=== PATIENT | female | born 1930 | race Two or more races ===

== ENCOUNTER 2019-01-28 19:17 | Inpatient (IN) | payer MEDICARE, OTHER ==
--- NOTE | 2019-01-28 19:52 | ED Physician Chart ---
ED Chief Complaint/HPI - Patient Information Date Seen:: 01/28/19 Time Seen:: 19:49 Chief Complaint:: agitation History of Present Illness:: 88 yr old female for geropsych eval with agitation no acute distress pt awake no tanswering questions Allergies:: Allergies Allergy/AdvReac Type Severity Reaction Status Date / Time Penicillins Allergy Verified 01/28/19 19:29 Vitals:: Vital Signs - 8 hr 01/28/19 19:20 Temp 97.8 F HR 76 RR 18 BP 117/63 O2 Sat % 98 ED Review of Systems - Review of Systems General/Constitutional: No fever, No chills, No weight loss, No weakness, No diaphoresis, No edema, No loss of appetite Skin: No skin lesions, No rash, No bruising Head: No headache, No light-headedness Eyes: No loss of vision, No pain, No diplopia ENT: No earache, No nasal drainage, No sore throat, No tinnitus Neck: No neck pain, No swelling, No thyromegaly, No stiffness, No mass noted Cardio Vascular: No chest pain, No palpitations, No PND, No orthopnea, No edema Pulmonary: No SOB, No cough, No sputum, No wheezing GI: No nausea, No vomiting, No diarrhea, No pain, No melena, No hematochezia, No constipation, No hematemesis G/U: No dysuria, No frequency, No hematuria Musculoskeletal: No bone or joint pain, No back pain, No muscle pain Endocrine: No polyuria, No polydipsia Psychiatric: No prior psych history, No depression, No anxiety, No suicidal ideation Hematopoietic: No bruising, No lymphadenopathy Allergic/Immuno: No urticaria, No angioedema Neurological: No syncope, No focal symptoms, No weakness, No paresthesia, No headache, No seizure, No dizziness, No confusion, No vertigo ED Past Medical History - Past Medical History Past Medical History: Other (see nurses notes) Family Medical History - Family Member Mother History Unknown: Yes ED Physical Exam - Physical Examination General/Constitutional: Awake, Well-developed, well-nourished, Alert, No distress, GCS 15, Non-toxic appearing, Ambulatory Head: Atraumatic Eyes: Lids, conjuctiva normal, PERRL, EOMI Skin: Nl inspection, No rash, No skin lesions, No ecchymosis, Well hydrated, No lymphadenopathy ENMT: External ears, nose nl, Nasal exam nl, Lips, teeth, gums nl Neck: Nontender, Full ROM w/o pain, No JVD, No nuchal rigidity, No bruit, No mass, No stridor Respiratory: Nl effort/Exclusion, Clear to Auscultation, No Wheeze/Rhonchi/Rales Cardio Vascular: RRR, No murmur, gallop, rubs, NL S1 S2 GI: No tenderness/rebounding/guarding, No organomegaly, No hernia, Normal BS's, Nondistended, No mass/bruits, No McBurney tenderness : No CVA tenderness Extremities: No tenderness or effusion, Full ROM, normal strength in all extremities, No edema, Normal digits & nails Neuro/Psych: Alert/oriented, DTR's symmetric, Normal sensory exam, Normal motor strength, Judgement/insight normal, Mood normal, Normal gait, No focal deficits Misc: Normal back, No paraspinal tenderness ED Assessment - Assessment General Assessment: agitation geropsych eval ED Septic Shock - . Is Septic Shock (SBP<90, OR Lactate>4 mmol\L) present?: No - <6hrs of presentation: Vital Signs: Vital Signs - 8 hr 01/28/19 19:20 Temp 97.8 F HR 76 RR 18 BP 117/63 O2 Sat % 98 ED Reassessment (Disposition) - Reassessment Reassessment:: agitation geropsych eval - Diagnosis Diagnosis:: as above - Patient Disposition Admitted to:: [facility] Condition at Disposition:: Stable
[2019-01-28 20:17] LABS: % BASOPHILS 0.8 % (0.0-2.0); % EOSINOPHILS 1.6 % (0.0-5.0); % LYMPHOCYTES 30.4 % (20.0-50.0); % MONOCYTES 6.7 % (2.0-10.0); % NEUTROPHILS 60.5 % (40.0-80.0); BASOPHILE ABSOLUTE 0.1 Th/cumm (0-0.2); EOSINOPHILE ABSOLUTE 0.1 Th/cmm (0.1-0.4); HEMATOCRIT 35.3 % (41.0-60); HEMOGLOBIN 11.8 gm/dL (12-16); LYMPHOCYTE ABSOLUTE 2.3 Th/cmm (1.5-3.0); MEAN CELL VOLUME 89.7 fl (81-100); MEAN CORPUSCULAR HGB CONC 33.5 pg (28.0-36.0); MONOCYTE ABSOLUTE 0.5 Th/cmm (0.3-1.0); NEUTROPHILE ABSOLUTE 4.7 Th/cmm (1.8-8.0); PLATELET COUNT 230 Th/cmm (150-400); RED BLOOD COUNT 3.94 Mil/cmm (3.80-5.20); RED CELL DISTRIBUTION WIDTH 12.3 % (11.5-20.0); WHITE BLOOD COUNT 7.7 Th/cmm (4.8-10.8)
[2019-01-28 20:34] LABS: ALB/GLOB RATIO 1.1 (1.0-1.8); ALBUMIN 3.6 gm/dL (3.7-5.3); ALKALINE PHOSPHATASE 47 U/L (34-104); BILIRUBIN,TOTAL 0.3 mg/dL (0.3-1.0); BUN - UREA NITROGEN 20 mg/dL (7-25); CALCIUM SERUM 9.7 mg/dL (8.6-10.3); CARBON DIOXIDE 24.9 mEq/L (21.0-31.0); CHLORIDE 99 mEq/L (98-107); CREATININE - SERUM 0.8 mg/dL (0.6-1.2); GLUCOSE 350 mg/dL (70-105); POTASSIUM SERUM 3.9 mEq/L (3.5-5.1); SGOT 12 U/L (13-39); SGPT/ALT 11 U/L (7-52); SODIUM SERUM 131 mEq/L (136-145)
[2019-01-28] MEDS ORDERED: INSULIN LISPRO 100 UNIT/ML VIAL SUBQ SCH (21:00)
[2019-01-28] MEDS ORDERED: INSULIN LISPRO 100 UNIT/ML VIAL SUBQ ONE ×2 (21:01→21:45)
[2019-01-28] MEDS ORDERED: Magnesium Hydroxide (MOM) 30 mL UDC PO PRN (22:32)
[2019-01-28 22:52] LABS: CHOLESTEROL 181 mg/dL (<200); HDL -HIGH DENSITY LIPOPROTEIN 41 mg/dL (23-92); TRIGLYCERIDES 171 mg/dL (<150)
[2019-01-29 07:06] LABS: A1C 8.8 % (4.8-5.6)
[2019-01-29] MEDS ORDERED: INSULIN HUMAN REGULAR 100 UNIT/ML VIAL SUBQ SCH (07:30)
[2019-01-29] MEDS ORDERED: Non-Formulary Item 1 EA (Ascorbate Calcium [Vitamin C] 500 MG) PO SCH (09:00)
[2019-01-29] MEDS: Multivitamin w/ Minerals Tab PO SCH (09:06)
[2019-01-29] MEDS: Aspirin 81mg Chewable Tab PO SCH (09:06)
[2019-01-29] MEDS ORDERED: Dextrose 50% 50 mL Abboject IVP PRN (09:26)
[2019-01-29] MEDS ORDERED: GLUCAGON HCl 1 MG KIT IM PRN (09:26)
--- NOTE | 2019-01-29 10:28 | History and Physical ---
History of Present Illness - HPI Chief Complaint: 88 y/o female patient was brought into ER due to agitation. HPI: 88 y/o female patient was admitted to [facility] due to Agitation. Patient has history of . Patient had an ER assessment and a complete workup was done. Patient was diagnosed with Acute Psychosis. Patient will have a Psyche consult and I will follow, treat and monitor patient. Patient will continue current treatment plan as ordered. Vital Signs: Last Vital Signs Temp 97.9 F 01/29/19 05:49 Pulse 71 01/29/19 05:49 Resp 20 01/29/19 05:49 BP 133/54 01/29/19 05:49 Pulse Ox 96 01/29/19 05:49 Past Medical History Cardiovascular: Report: No Pertinent Hx Pulmonary: Report: No Pertinent Hx ETHYL BLENDER: Report: No Pertinent Hx GI: Report: No Pertinent Hx Psych: Report: Psychosis Musculoskeletal: Report: No Pertinent Hx Rheumatologic: Report: No pertinent Hx Infectious Disease: Report: No Pertinent Hx Renal/: Report: No Pertinent Hx Endocrine: Report: No Pertinent Hx Dermatology: Report: No Pertinent Hx - Past Surgical History Past Surgical History: No pertinent Hx Family Medical History - Family Member Mother History Unknown: Yes Social History Smoke: No Alcohol: None Drugs: None Lives: Skilled Nursing Domestic Violence: Negative Health Maintenance Health Maintenance: Other (see chart.) - Medications Home Medications: Home Medication Medication Instructions Recorded Type Ascorbate Calcium [Vitamin C] 500 mg PO DAILY 01/28/19 History Aspirin 81 mg PO DAILY 01/28/19 History Calcium Carbonate [Calcium] 600 mg PO HS 01/28/19 History Cholecalciferol (Vitamin D3) 2,000 unit PO HS 01/28/19 History [Vitamin D3] Citalopram Hydrobromide [Celexa*] 10 mg PO HS 01/28/19 History Fenofibric Acid (Choline) 135 mg PO HS 01/28/19 History [Trilipix] Insulin Glargine [Lantus Insulin] 10 units SUBQ HS 01/28/19 History Insulin Human Regular [humuLIN R] 100 unit SQ ACHS 01/28/19 History Linagliptin [Tradjenta] 5 mg PO HS 01/28/19 History Multivitamin w/ Minerals 1 tab PO DAILY 08/23/19 History [Theragran M] risperiDONE [RisperDAL] 0.5 mg PO Q12HR 01/28/19 History Other Medications: please see medication reconciliation sheet. - Allergies Allergies/Adverse Reactions: Allergies Allergy/AdvReac Type Severity Reaction Status Date / Time Penicillins Allergy Verified 01/28/19 19:29 Review of Systems - Review of Systems Review of Systems: Patient has been very agitated and irritable. Constitutional: Report: No Significant Eyes: Report: No Significant ENT: Report: No Significant Respiratory: Report: No Significant Cardiovascular: Report: No Significant Gastrointestinal: Report: No Significant Genitourinary: Report: No Significant Musculoskeletal: Report: No Significant Skin: Report: No Significant Neurological: Report: Other (Agitated.) Physical Exam - Physical Exam HEENT: Report: Ears Nose Throat within normal limits Neck: Report: Within normal limits Cardiovascular Systems: Report: +s1/s2 noted Respiratory: Report: Breath Sounds are within normal limits Abdomen: Report: Non-tender to palpation Back: Report: Inspection of back is within normal limits. Extremities: Report: Non-tender to palpation. Skin: Report: Color of skin is within normal limits Neuro/Psych: Report: Other (Agitation.) - Lab Results All Lab Results last 24 hours: Laboratory Results - last 24 hr 01/28/19 01/28/19 01/28/19 20:05 20:05 20:30 WBC 7.7 RBC 3.94 Hgb 11.8 L Hct 35.3 L MCV 89.7 MCH 30.0 MCHC Differential 33.5 RDW 12.3 Plt Count 230 MPV 8.7 Neutrophils % 60.5 Lymphocytes % 30.4 Monocytes % 6.7 Eosinophils % 1.6 Basophils % 0.8 Sodium 131 L Potassium 3.9 Chloride 99 Carbon Dioxide 24.9 Anion Gap 11.0 BUN 20 Creatinine 0.8 Est GFR ( Amer) TNP Est GFR (Non-Af Amer) TNP BUN/Creatinine Ratio 25.0 Glucose 350 H Calcium 9.7 Total Bilirubin 0.3 AST 12 L ALT 11 Alkaline Phosphatase 47 Total Protein 7.0 Albumin 3.6 L Globulin 3.4 Albumin/Globulin Ratio 1.1 Triglycerides 171 H Cholesterol 181 LDL Cholesterol Direct 127 HDL Cholesterol 41 - Assessment Assessment: Acute Psychosis. - Plan Plan: Continuation of care. Monitor Vitals and Labs. Continue present meds as directed. Monitor Diet/Nutritional support. Psych management per Psych. Physical therapy/Occupational therapy prn. Fall precaution, frequent nursing rounds, and as needed restraints to prevent fall. Safety precaution. Supportive care. Continue collaborating with consulting specialists, case management and nursing team. Will Monitor patient and continue current treatment plan as ordered.
[2019-01-29] MEDS: INSULIN LISPRO SLIDING SCALE 100 UNITS/ML UNIT SUBQ SCH ×3 (11:45→21:12)
[2019-01-29] MEDS: Fenofibrate, Micronized 134 mg Cap PO SCH (20:26)
[2019-01-29] MEDS: Vitamin D3 2,000 IU SGL PO SCH (20:26)
[2019-01-29] MEDS ORDERED: FENOFIBRIC ACID 135 MG PO SCH (21:00)
[2019-01-29] MEDS: Insulin Glargine 100 units/ml 10ml Vial SUBQ SCH (21:11)
--- NOTE | 2019-01-30 04:30 | Consultation ---
DATE OF CONSULTATION: 01/29/2019 INITIAL PSYCHIATRIC EVALUATION Covering for Dr. Rodriguez CHIEF COMPLAINT: Selectively mute. HISTORY OF PRESENT ILLNESS: An 88-year-old female brought in here for aggressive and agitated behavior, diagnosed with acute psychosis, transition from the ER to [facility]. Today on [id number] evaluation, the patient appeared to be responding, needing a lot of redirection to talk, selectively mute, disengaged and refusing to be interviewed. CURRENT HOME MEDICATIONS: Include vitamin C, aspirin, calcium, vitamin D3, Celexa 10 mg, fenofibric acid, insulin, multivitamins and risperidone. CURRENT MEDICAL PROBLEMS: Hyperlipidemia, diabetes. SIGNIFICANT FAMILY PSYCHIATRIC: Denies. ALLERGIES TO MEDICATIONS: PENICILLIN. SOCIAL HISTORY: No history of alcohol or drug use. Lives in a senior living. Denies any physical or verbal abuse. LABORATORY DATA: Reviewed. MENTAL STATUS EXAMINATION: Selectively mute, disengaged, unable to assess thought process and thought content, responding. Poor insight, poor judgment, poor impulse control. PRIMARY DIAGNOSIS: Unspecified psychosis. SECONDARY DIAGNOSIS: None. MEDICAL DIAGNOSIS: As noted above. STRENGTHS: Good support system. WEAKNESSES: Poor coping skills. ESTIMATED LENGTH OF STAY: Between 5-10 days. LEGAL HISTORY: None. ONSET OF ILLNESS: Unable to assess due to the patient's refusal. ASSESSMENT AND PLAN: An 88-year-old female, history of dementia with behavior disturbances and psychotic behavior and agitation, medically cleared. We will continue monitoring, obtain more collateral baseline information. Continue with the risperidone. We will obtain more collateral, accept the 5150. [facility]# [id number]
[2019-01-30] MEDS: INSULIN LISPRO SLIDING SCALE 100 UNITS/ML UNIT SUBQ SCH ×4 (06:57→21:05)
[2019-01-30] MEDS: Multivitamin w/ Minerals Tab PO SCH (08:53)
[2019-01-30] MEDS: Aspirin 81mg Chewable Tab PO SCH (08:53)
--- NOTE | 2019-01-30 10:35 | Internal Medicine Prog Note ---
Internal Medicine Subjective - Subjective Patient is:: awake, non-verbal, non-interactive, arousable, in bed, other Per staff patient has:: no adverse event, no episodes of fall Internal Medicine Objective - Results Result Diagrams: 01/28/19 20:05 01/28/19 20:05 Recent Labs: Laboratory Last Values WBC 7.7 Th/cmm (4.8-10.8) 01/28/19 20:05 RBC 3.94 Mil/cmm (3.80-5.20) 01/28/19 20:05 Hgb 11.8 gm/dL (12-16) L 01/28/19 20:05 Hct 35.3 % (41.0-60) L 01/28/19 20:05 MCV 89.7 fl (81-100) 01/28/19 20:05 MCH 30.0 pg (27.0-31.0) 01/28/19 20:05 MCHC Differential 33.5 pg (28.0-36.0) 01/28/19 20:05 RDW 12.3 % (11.5-20.0) 01/28/19 20:05 Plt Count 230 Th/cmm (150-400) 01/28/19 20:05 MPV 8.7 fl 01/28/19 20:05 Neutrophils % 60.5 % (40.0-80.0) 01/28/19 20:05 Lymphocytes % 30.4 % (20.0-50.0) 01/28/19 20:05 Monocytes % 6.7 % (2.0-10.0) 01/28/19 20:05 Eosinophils % 1.6 % (0.0-5.0) 01/28/19 20:05 Basophils % 0.8 % (0.0-2.0) 01/28/19 20:05 Sodium 131 mEq/L (136-145) L 01/28/19 20:05 Potassium 3.9 mEq/L (3.5-5.1) 01/28/19 20:05 Chloride 99 mEq/L (98-107) 01/28/19 20:05 Carbon Dioxide 24.9 mEq/L (21.0-31.0) 01/28/19 20:05 Anion Gap 11.0 (7.0-16.0) 01/28/19 20:05 BUN 20 mg/dL (7-25) 01/28/19 20:05 Creatinine 0.8 mg/dL (0.6-1.2) 01/28/19 20:05 Est GFR ( Amer) TNP 01/28/19 20:05 Est GFR (Non-Af Amer) TNP 01/28/19 20:05 BUN/Creatinine Ratio 25.0 01/28/19 20:05 Glucose 350 mg/dL (70-105) H 01/28/19 20:05 POC Glucose 205 MG/DL (70 - 105) H 01/30/19 05:49 Calcium 9.7 mg/dL (8.6-10.3) 01/28/19 20:05 Total Bilirubin 0.3 mg/dL (0.3-1.0) 01/28/19 20:05 AST 12 U/L (13-39) L 01/28/19 20:05 ALT 11 U/L (7-52) 01/28/19 20:05 Alkaline Phosphatase 47 U/L (34-104) 01/28/19 20:05 Total Protein 7.0 gm/dL (6.0-8.3) 01/28/19 20:05 Albumin 3.6 gm/dL (3.7-5.3) L 01/28/19 20:05 Globulin 3.4 gm/dL 01/28/19 20:05 Albumin/Globulin Ratio 1.1 (1.0-1.8) 01/28/19 20:05 Triglycerides 171 mg/dL (<150) H 01/28/19 20:30 Cholesterol 181 mg/dL (<200) 01/28/19 20:30 LDL Cholesterol Direct 127 mg/dL (75-193) 01/28/19 20:30 HDL Cholesterol 41 mg/dL (23-92) 01/28/19 20:30 - Physical Exam Vitals and I&O: Vital Signs Temp 97.6 F 01/30/19 04:39 Pulse 69 01/30/19 04:39 Resp 18 01/30/19 04:39 BP 140/62 01/30/19 04:39 Pulse Ox 98 01/30/19 04:39 Intake & Output 01/29/19 01/30/19 01/30/19 18:59 06:59 18:59 Intake Total 960 480 Balance 960 480 Intake: Oral 960 480 Other: # Voids 4 2 # Bowel Movements 1 Active Medications: Current Medications Acetaminophen (Tylenol) 650 mg PO Q4HR PRN PRN Reason: Mild Pain / Temp above 100 Stop: 03/29/19 22:31 Ascorbic Acid (Vitamin C) 500 mg PO DAILY [facility] Stop: 03/30/19 08:59 Last Admin: 01/30/19 08:53 Dose: 500 mg Aspirin (Aspirin Chewable) 81 mg PO DAILY [facility] Stop: 03/30/19 08:59 Last Admin: 01/30/19 08:53 Dose: 81 mg Calcium Carbonate (Calcium Carb) 600 mg PO [facility] Stop: 03/30/19 20:59 Last Admin: 01/29/19 21:25 Dose: 600 mg Citalopram Hydrobromide (Celexa) 10 mg PO [facility] Stop: 03/30/19 20:59 Last Admin: 01/29/19 20:27 Dose: 10 mg Dextrose (D50w) 50 ml IVP PRN PRN PRN Reason: Blood Glucose less than 70 Stop: 03/30/19 09:25 Dextrose (Glutose 40%) 18.75 gm PO PRN PRN PRN Reason: Blood Glucose less than 70 Stop: 03/30/19 09:25 Fenofibrate (Tricor) 134 mg PO [facility] Stop: 03/30/19 20:59 Last Admin: 01/29/19 20:26 Dose: 134 mg Glucagon (Glucagen) 1 mg IM PRN PRN PRN Reason: Blood Glucose less than 70 Stop: 03/30/19 09:25 Insulin Glargine (Lantus Insulin) 10 units SUBQ [facility] Stop: 03/30/19 20:59 Last Admin: 01/29/19 21:11 Dose: 10 units Insulin Human Lispro (Humalog Insulin Sliding Scale) 0 units SUBQ [facility]; Protocol Stop: 03/30/19 11:29 Last Admin: 01/30/19 06:57 Dose: 4 units Lorazepam (Ativan) 0.5 mg PO Q4HR PRN; Protocol PRN Reason: Anxiety Stop: 02/27/19 21:59 Magnesium Hydroxide (Milk Of Magnesia) 30 ml PO HS PRN PRN Reason: Constipation Risperidone (Risperdal) 0.5 mg PO Q12HR [facility]; Protocol Stop: 03/30/19 08:59 Last Admin: 01/30/19 08:53 Dose: 0.5 mg Vitamin D (Vitamin D3) 2,000 iu PO HS [facility] Stop: 03/30/19 20:59 Last Admin: 01/29/19 20:26 Dose: 2,000 iu Zolpidem Tartrate (Ambien) 5 mg PO HS PRN PRN Reason: Insomnia Stop: 03/29/19 22:31 Last Admin: 01/29/19 20:27 Dose: 5 mg General: weak, demented, obese, NAD HEENT: NC/AT, PERRLA Neck: Supple, No JVD Lungs: CTAB Cardiovascular: RRR, Normal S1, Normal S2 Abdomen: soft, non-tender, non-distended Extremities: clear Internal Medicine Assmt/Plan - Assessment Assessment: Acute Psychosis Diabetes Hyperlipidemia Obesity - Plan Plan: Continue current treatment plan. Monitor Labs.Continue current medications Continue to monitor VS Monitor Diet/Nutritional support. Psych management per Psychiatry. Pain Management. PT/OT prn Safety precaution, Fall precaution, frequent nursing round. Supportive care. Continue collaborating with consulting specialists, case management and nursing team.
[2019-01-30 16:32] LABS: URINE SOURCE CATH
[2019-01-30 16:34] LABS: URINE BILIRUBIN NEGATIVE (NEGATIVE); URINE BLOOD TRACE (NEGATIVE); URINE GLUCOSE (UA) NEGATIVE (NEGATIVE); URINE KETONE NEGATIVE (NEGATIVE); URINE LEUKOCYTE ESTERASE TRACE (NEGATIVE); URINE MICROSCOPIC INDICATED? YES; URINE NITRATE NEGATIVE (NEGATIVE); URINE PROTEIN NEGATIVE (NEGATIVE); URINE UROBILINOGEN 0.2 E.U./dL (0.2 - 1.0)
[2019-01-30 17:19] LABS: URINE CLARITY CLEAR (CLEAR); URINE COLOR YELLOW
[2019-01-30 17:23] LABS: URINE BACTERIA 2+ /hpf (NONE SEEN); URINE EPITHELIAL CELLS FEW /lpf (FEW); URINE RBC 0-2 /hpf (0-5)
[2019-01-30] MEDS: Vitamin D3 2,000 IU SGL PO SCH (21:01)
[2019-01-30] MEDS: Fenofibrate, Micronized 134 mg Cap PO SCH (21:01)
[2019-01-30] MEDS: Insulin Glargine 100 units/ml 10ml Vial SUBQ SCH (21:04)
--- NOTE | 2019-01-31 02:56 | Progress Notes ---
DATE: 01/30/[address] Rodriguez. SUBJECTIVE: The patient was seen and evaluated. The patient's chart reviewed. Nursing staff reporting that overnight the patient continues to need a lot of redirections, intermittently yelling nonsensical statements. Today on [id number] evaluation, the patient continues to be selectively mute, disengaged in the interview. MENTAL STATUS EXAMINATION: Tangential, disorganized, selectively mute. ASSESSMENT AND PLAN: An 88-year-old female with dementia with behavior disturbances. We will continue monitoring. We will continue with the current medication regimen to target the patient's disorganized state. JOB# [id number]
[2019-01-31] MEDS: INSULIN LISPRO SLIDING SCALE 100 UNITS/ML UNIT SUBQ SCH ×3 (07:05→20:54)
[2019-01-31] MEDS: Aspirin 81mg Chewable Tab PO SCH (08:04)
[2019-01-31] MEDS: Multivitamin w/ Minerals Tab PO SCH (08:05)
--- NOTE | 2019-01-31 11:16 | Internal Medicine Prog Note ---
Internal Medicine Subjective - Subjective Service Date: 01/31/19 Patient seen and examined:: with staff Patient is:: awake, non-verbal, non-interactive, arousable, in bed, other ( Demented.) Patient Complaints of:: other Per staff patient has:: no adverse event, no episodes of fall Internal Medicine Objective - Results Result Diagrams: 01/28/19 20:05 01/28/19 20:05 Recent Labs: Laboratory Last Values WBC 7.7 Th/cmm (4.8-10.8) 01/28/19 20:05 RBC 3.94 Mil/cmm (3.80-5.20) 01/28/19 20:05 Hgb 11.8 gm/dL (12-16) L 01/28/19 20:05 Hct 35.3 % (41.0-60) L 01/28/19 20:05 MCV 89.7 fl (81-100) 01/28/19 20:05 MCH 30.0 pg (27.0-31.0) 01/28/19 20:05 MCHC Differential 33.5 pg (28.0-36.0) 01/28/19 20:05 RDW 12.3 % (11.5-20.0) 01/28/19 20:05 Plt Count 230 Th/cmm (150-400) 01/28/19 20:05 MPV 8.7 fl 01/28/19 20:05 Neutrophils % 60.5 % (40.0-80.0) 01/28/19 20:05 Lymphocytes % 30.4 % (20.0-50.0) 01/28/19 20:05 Monocytes % 6.7 % (2.0-10.0) 01/28/19 20:05 Eosinophils % 1.6 % (0.0-5.0) 01/28/19 20:05 Basophils % 0.8 % (0.0-2.0) 01/28/19 20:05 Sodium 131 mEq/L (136-145) L 01/28/19 20:05 Potassium 3.9 mEq/L (3.5-5.1) 01/28/19 20:05 Chloride 99 mEq/L (98-107) 01/28/19 20:05 Carbon Dioxide 24.9 mEq/L (21.0-31.0) 01/28/19 20:05 Anion Gap 11.0 (7.0-16.0) 01/28/19 20:05 BUN 20 mg/dL (7-25) 01/28/19 20:05 Creatinine 0.8 mg/dL (0.6-1.2) 01/28/19 20:05 Est GFR ( Amer) TNP 01/28/19 20:05 Est GFR (Non-Af Amer) TNP 01/28/19 20:05 BUN/Creatinine Ratio 25.0 01/28/19 20:05 Glucose 350 mg/dL (70-105) H 01/28/19 20:05 POC Glucose 180 MG/DL (70 - 105) H 01/31/19 05:57 Calcium 9.7 mg/dL (8.6-10.3) 01/28/19 20:05 Total Bilirubin 0.3 mg/dL (0.3-1.0) 01/28/19 20:05 AST 12 U/L (13-39) L 01/28/19 20:05 ALT 11 U/L (7-52) 01/28/19 20:05 Alkaline Phosphatase 47 U/L (34-104) 01/28/19 20:05 Total Protein 7.0 gm/dL (6.0-8.3) 01/28/19 20:05 Albumin 3.6 gm/dL (3.7-5.3) L 01/28/19 20:05 Globulin 3.4 gm/dL 01/28/19 20:05 Albumin/Globulin Ratio 1.1 (1.0-1.8) 01/28/19 20:05 Triglycerides 171 mg/dL (<150) H 01/28/19 20:30 Cholesterol 181 mg/dL (<200) 01/28/19 20:30 LDL Cholesterol Direct 127 mg/dL (75-193) 01/28/19 20:30 HDL Cholesterol 41 mg/dL (23-92) 01/28/19 20:30 Urine Source CATH 01/30/19 16:25 Urine Color YELLOW 01/30/19 16:25 Urine Clarity CLEAR (CLEAR) 01/30/19 16:25 Urine pH 6.0 (4.6 - 8.0) 01/30/19 16:25 Ur Specific [place] 1.020 (1.005-1.030) 01/30/19 16:25 Urine Protein NEGATIVE mg/dL (NEGATIVE) 01/30/19 16:25 Urine Glucose (UA) NEGATIVE mg/dL (NEGATIVE) 01/30/19 16:25 Urine Ketones NEGATIVE mg/dL (NEGATIVE) 01/30/19 16:25 Urine Blood TRACE (NEGATIVE) 01/30/19 16:25 Urine Nitrate NEGATIVE (NEGATIVE) 01/30/19 16:25 Urine Bilirubin NEGATIVE (NEGATIVE) 01/30/19 16:25 Urine Urobilinogen 0.2 E.U./dL (0.2 - 1.0) 01/30/19 16:25 Ur Leukocyte Esterase TRACE (NEGATIVE) H 01/30/19 16:25 Urine RBC 0-2 /hpf (0-5) 01/30/19 16:25 Urine WBC 2-5 /hpf (0-5) 01/30/19 16:25 Ur Epithelial Cells FEW /lpf (FEW) 01/30/19 16:25 Urine Bacteria 2+ /hpf (NONE SEEN) H 01/30/19 16:25 - Physical Exam Vitals and I&O: Vital Signs Temp 98.0 F 01/31/19 04:36 Pulse 71 01/31/19 04:36 Resp 18 01/31/19 04:36 BP 134/85 01/31/19 04:36 Pulse Ox 99 01/31/19 04:36 Intake & Output 01/30/19 01/31/19 01/31/19 18:59 06:59 18:59 Intake Total 480 Balance 480 Intake: Oral 480 Other: # Voids 2 Active Medications: Current Medications Acetaminophen (Tylenol) 650 mg PO Q4HR PRN PRN Reason: Mild Pain / Temp above 100 Stop: 03/29/19 22:31 Ascorbic Acid (Vitamin C) 500 mg PO DAILY [facility] Stop: 03/30/19 08:59 Last Admin: 01/31/19 08:04 Dose: 500 mg Aspirin (Aspirin Chewable) 81 mg PO DAILY [facility] Stop: 03/30/19 08:59 Last Admin: 01/31/19 08:04 Dose: 81 mg Calcium Carbonate (Calcium Carb) 600 mg PO HS [facility] Stop: 03/30/19 20:59 Last Admin: 01/30/19 21:00 Dose: 600 mg Citalopram Hydrobromide (Celexa) 10 mg PO HS [facility] Stop: 03/30/19 20:59 Last Admin: 01/30/19 21:02 Dose: 10 mg Dextrose (D50w) 50 ml IVP PRN PRN PRN Reason: Blood Glucose less than 70 Stop: 03/30/19 09:25 Dextrose (Glutose 40%) 18.75 gm PO PRN PRN PRN Reason: Blood Glucose less than 70 Stop: 03/30/19 09:25 Fenofibrate (Tricor) 134 mg PO HS [facility] Stop: 03/30/19 20:59 Last Admin: 01/30/19 21:01 Dose: 134 mg Glucagon (Glucagen) 1 mg IM PRN PRN PRN Reason: Blood Glucose less than 70 Stop: 03/30/19 09:25 Insulin Glargine (Lantus Insulin) 10 units SUBQ [facility] Stop: 03/30/19 20:59 Last Admin: 01/30/19 21:04 Dose: 10 units Insulin Human Lispro (Humalog Insulin Sliding Scale) 0 units SUBQ [facility]; Protocol Stop: 03/30/19 11:29 Last Admin: 01/31/19 07:05 Dose: 2 units Lorazepam (Ativan) 0.5 mg PO Q4HR PRN; Protocol PRN Reason: Anxiety Stop: 02/27/19 21:59 Last Admin: 01/30/19 17:16 Dose: 0.5 mg Magnesium Hydroxide (Milk Of Magnesia) 30 ml PO HS PRN PRN Reason: Constipation Risperidone (Risperdal) 0.5 mg PO Q12HR [facility]; Protocol Stop: 03/30/19 08:59 Last Admin: 01/31/19 08:04 Dose: 0.5 mg Vitamin D (Vitamin D3) 2,000 iu PO HS [facility] Stop: 03/30/19 20:59 Last Admin: 01/30/19 21:01 Dose: 2,000 iu Zolpidem Tartrate (Ambien) 5 mg PO HS PRN PRN Reason: Insomnia Stop: 03/29/19 22:31 Last Admin: 01/30/19 21:03 Dose: 5 mg Physical Exam: Patient is lying inn bed, appears comfortable. General: weak, demented, obese, NAD HEENT: NC/AT, PERRLA Neck: Supple, No JVD Lungs: CTAB Cardiovascular: RRR, Normal S1, Normal S2 Abdomen: soft, non-tender, non-distended Extremities: clear Internal Medicine Assmt/Plan - Assessment Assessment: Acute Psychosis. Diabetes. Hyperlipidemia. Obesity. - Plan Plan: Continuation of care. Monitor Vitals and Labs. Continue present meds as directed. Accu-checks daily, continue DM meds as directed. Monitor Diet/Nutritional support. Psych management per Psych. Physical therapy/Occupational therapy prn. Fall precaution, frequent nursing rounds, and as needed restraints to prevent fall. Safety precaution. Supportive care. Continue collaborating with consulting specialists, case management and nursing team. Will Monitor patient and continue present care management. Nutritional Asmnt/Malnutr-PDOC - Dietary Evaluation Malnutrition Findings (Please click <Entered> for more info): see orders.
[2019-01-31] MEDS: Fenofibrate, Micronized 134 mg Cap PO SCH (20:52)
[2019-01-31] MEDS: Vitamin D3 2,000 IU SGL PO SCH (20:52)
[2019-01-31] MEDS: Insulin Glargine 100 units/ml 10ml Vial SUBQ SCH (20:55)
--- NOTE | 2019-01-31 23:30 | Progress Notes ---
DATE: 01/31/2019 Case was discussed with staff of the patient, reviewed records. This is an 88-year-old female who was admitted on 01/28/2019 because of aggressive and agitated behavior, diagnosed with acute psychosis. The patient continues to be confused, disengaged, refusing to engage. The patient with no history of alcohol or drug use, selectively mute, unable to make safe plan for self-care, unable to carry on a conversation. She is on Risperdal 0.5 mg twice a day with no side effects, no sedation, no nausea, no extrapyramidal symptoms. We will continue to work with the patient in group therapy, milieu therapy, and adjust the medication as needed. [facility]# [id number]
[2019-02-01] MEDS: INSULIN LISPRO SLIDING SCALE 100 UNITS/ML UNIT SUBQ SCH ×4 (06:45→21:22)
[2019-02-01] MEDS: Aspirin 81mg Chewable Tab PO SCH (09:07)
[2019-02-01] MEDS: Multivitamin w/ Minerals Tab PO SCH (09:07)
--- NOTE | 2019-02-01 14:26 | Progress Notes ---
DATE: 02/01/2019 Case was discussed with staff of the patient, reviewed records. The patient continues to be internally preoccupied, confused, distinct age. Unable to carry on a conversation. She continues to be selectively mute, unable to make safe plan for self-care. Her appetite and sleep varies. No side effects from the medication, no sedation, no nausea and no extrapyramidal symptoms. I will continue to work with the patient in group therapy, milieu therapy, and adjust medication as needed. JOB# [id number]
--- NOTE | 2019-02-01 17:26 | Internal Medicine Prog Note ---
Internal Medicine Subjective - Subjective Service Date: 02/01/19 Patient is:: awake, non-verbal, non-interactive, arousable, in bed, other ( Demented.) Patient Complaints of:: other Per staff patient has:: no adverse event, no episodes of fall Internal Medicine Objective - Results Result Diagrams: 01/28/19 20:05 01/28/19 20:05 Recent Labs: Laboratory Last Values WBC 7.7 Th/cmm (4.8-10.8) 01/28/19 20:05 RBC 3.94 Mil/cmm (3.80-5.20) 01/28/19 20:05 Hgb 11.8 gm/dL (12-16) L 01/28/19 20:05 Hct 35.3 % (41.0-60) L 01/28/19 20:05 MCV 89.7 fl (81-100) 01/28/19 20:05 MCH 30.0 pg (27.0-31.0) 01/28/19 20:05 MCHC Differential 33.5 pg (28.0-36.0) 01/28/19 20:05 RDW 12.3 % (11.5-20.0) 01/28/19 20:05 Plt Count 230 Th/cmm (150-400) 01/28/19 20:05 MPV 8.7 fl 01/28/19 20:05 Neutrophils % 60.5 % (40.0-80.0) 01/28/19 20:05 Lymphocytes % 30.4 % (20.0-50.0) 01/28/19 20:05 Monocytes % 6.7 % (2.0-10.0) 01/28/19 20:05 Eosinophils % 1.6 % (0.0-5.0) 01/28/19 20:05 Basophils % 0.8 % (0.0-2.0) 01/28/19 20:05 Sodium 131 mEq/L (136-145) L 01/28/19 20:05 Potassium 3.9 mEq/L (3.5-5.1) 01/28/19 20:05 Chloride 99 mEq/L (98-107) 01/28/19 20:05 Carbon Dioxide 24.9 mEq/L (21.0-31.0) 01/28/19 20:05 Anion Gap 11.0 (7.0-16.0) 01/28/19 20:05 BUN 20 mg/dL (7-25) 01/28/19 20:05 Creatinine 0.8 mg/dL (0.6-1.2) 01/28/19 20:05 Est GFR ( Amer) TNP 01/28/19 20:05 Est GFR (Non-Af Amer) TNP 01/28/19 20:05 BUN/Creatinine Ratio 25.0 01/28/19 20:05 Glucose 350 mg/dL (70-105) H 01/28/19 20:05 POC Glucose 162 MG/DL (70 - 105) H 02/01/19 16:38 Calcium 9.7 mg/dL (8.6-10.3) 01/28/19 20:05 Total Bilirubin 0.3 mg/dL (0.3-1.0) 01/28/19 20:05 AST 12 U/L (13-39) L 01/28/19 20:05 ALT 11 U/L (7-52) 01/28/19 20:05 Alkaline Phosphatase 47 U/L (34-104) 01/28/19 20:05 Total Protein 7.0 gm/dL (6.0-8.3) 01/28/19 20:05 Albumin 3.6 gm/dL (3.7-5.3) L 01/28/19 20:05 Globulin 3.4 gm/dL 01/28/19 20:05 Albumin/Globulin Ratio 1.1 (1.0-1.8) 01/28/19 20:05 Triglycerides 171 mg/dL (<150) H 01/28/19 20:30 Cholesterol 181 mg/dL (<200) 01/28/19 20:30 LDL Cholesterol Direct 127 mg/dL (75-193) 01/28/19 20:30 HDL Cholesterol 41 mg/dL (23-92) 01/28/19 20:30 Urine Source CATH 01/30/19 16:25 Urine Color YELLOW 01/30/19 16:25 Urine Clarity CLEAR (CLEAR) 01/30/19 16:25 Urine pH 6.0 (4.6 - 8.0) 01/30/19 16:25 Ur Specific [place] 1.020 (1.005-1.030) 01/30/19 16:25 Urine Protein NEGATIVE mg/dL (NEGATIVE) 01/30/19 16:25 Urine Glucose (UA) NEGATIVE mg/dL (NEGATIVE) 01/30/19 16:25 Urine Ketones NEGATIVE mg/dL (NEGATIVE) 01/30/19 16:25 Urine Blood TRACE (NEGATIVE) 01/30/19 16:25 Urine Nitrate NEGATIVE (NEGATIVE) 01/30/19 16:25 Urine Bilirubin NEGATIVE (NEGATIVE) 01/30/19 16:25 Urine Urobilinogen 0.2 E.U./dL (0.2 - 1.0) 01/30/19 16:25 Ur Leukocyte Esterase TRACE (NEGATIVE) H 01/30/19 16:25 Urine RBC 0-2 /hpf (0-5) 01/30/19 16:25 Urine WBC 2-5 /hpf (0-5) 01/30/19 16:25 Ur Epithelial Cells FEW /lpf (FEW) 01/30/19 16:25 Urine Bacteria 2+ /hpf (NONE SEEN) H 01/30/19 16:25 - Physical Exam Vitals and I&O: Vital Signs Temp 97.8 F 02/01/19 14:00 Pulse 63 02/01/19 14:00 Resp 18 02/01/19 14:00 BP 143/64 02/01/19 14:00 Pulse Ox 98 02/01/19 14:00 Intake & Output 01/31/19 02/01/19 02/01/19 18:59 06:59 18:59 Intake Total 900 240 Balance 900 240 Intake: Oral 900 240 Other: # Voids 4 2 # Bowel Movements 1 Active Medications: Current Medications Acetaminophen (Tylenol) 650 mg PO Q4HR PRN PRN Reason: Mild Pain / Temp above 100 Stop: 03/29/19 22:31 Ascorbic Acid (Vitamin C) 500 mg PO DAILY [facility] Stop: 03/30/19 08:59 Last Admin: 02/01/19 09:07 Dose: 500 mg Aspirin (Aspirin Chewable) 81 mg PO DAILY [facility] Stop: 03/30/19 08:59 Last Admin: 02/01/19 09:07 Dose: 81 mg Calcium Carbonate (Calcium Carb) 600 mg PO HS [facility] Stop: 03/30/19 20:59 Last Admin: 01/31/19 20:52 Dose: 600 mg Citalopram Hydrobromide (Celexa) 10 mg PO HS [facility] Stop: 03/30/19 20:59 Last Admin: 01/31/19 20:53 Dose: 10 mg Dextrose (Glutose 40%) 18.75 gm PO PRN PRN PRN Reason: BS Below 70 & tolerate po Stop: 03/30/19 09:25 Fenofibrate (Tricor) 134 mg PO HS [facility] Stop: 03/30/19 20:59 Last Admin: 01/31/19 20:52 Dose: 134 mg Glucagon (Glucagen) 1 mg IM PRN PRN PRN Reason: BS Below 70 & not tolerate po Stop: 03/30/19 09:25 Insulin Glargine (Lantus Insulin) 10 units SUBQ HS [facility] Stop: 03/30/19 20:59 Last Admin: 01/31/19 20:55 Dose: 10 units Insulin Human Lispro (Humalog Insulin Sliding Scale) 0 units SUBQ [facility]; Protocol Stop: 03/30/19 11:29 Last Admin: 02/01/19 17:11 Dose: 2 units Lorazepam (Ativan) 0.5 mg PO Q4HR PRN; Protocol PRN Reason: Anxiety Stop: 02/27/19 21:59 Last Admin: 01/31/19 20:53 Dose: 0.5 mg Magnesium Hydroxide (Milk Of Magnesia) 30 ml PO HS PRN PRN Reason: Constipation Risperidone (Risperdal) 0.5 mg PO Q12HR [facility]; Protocol Stop: 03/30/19 08:59 Last Admin: 02/01/19 09:07 Dose: 0.5 mg Vitamin D (Vitamin D3) 2,000 iu PO HS [facility] Stop: 03/30/19 20:59 Last Admin: 01/31/19 20:52 Dose: 2,000 iu Zolpidem Tartrate (Ambien) 5 mg PO HS PRN PRN Reason: Insomnia Stop: 03/29/19 22:31 Last Admin: 01/30/19 21:03 Dose: 5 mg General: weak, demented, obese, NAD HEENT: NC/AT, PERRLA Neck: Supple, No JVD Lungs: CTAB Cardiovascular: RRR, Normal S1, Normal S2 Abdomen: soft, non-tender, non-distended Extremities: clear Internal Medicine Assmt/Plan - Assessment Assessment: Acute Psychosis. Diabetes. Hyperlipidemia. Obesity. - Plan Plan: Continuation of care. Monitor Vitals and Labs. Continue present meds as directed. Accu-checks daily, continue DM meds as directed. Monitor Diet/Nutritional support. Psych management per Psych. Physical therapy/Occupational therapy prn. Fall precaution, frequent nursing rounds, and as needed restraints to prevent fall. Safety precaution. Supportive care. Continue collaborating with consulting specialists, case management and nursing team. Will Monitor patient and continue present care management. Nutritional Asmnt/Malnutr-PDOC - Dietary Evaluation Malnutrition Findings (Please click <Entered> for more info): Nutritional Asmnt/Malnutrition Start: 02/01/19 14: 25 Text: Status: Complete Freq: Protocol: Document 02/01/19 14:26 IAIN (Rec: 02/01/19 14:32 [email or web address]) Nutritional Asmnt/Malnutrition Patient General Information Nutritional Screening Moderate Risk Diagnosis Agitation Pertinent Medical Hx/Surgical Hx Psychosis, no other Pertinent Hx to report (H& P Limited) Subjective Information Pt is a 68-year-old female admitted on 01/27 d/t agitation with no acute distress. HT: 5 FT WT: 178 LB (80.91 kg) ABW: 120 LB (54.32 kg) BMI: 34.80 (Obese) GI: WNL, Soft, Non-Tender BM: 02/01 x1 I/O: 1140/Not Noted Skin: WNL, Intact Toby: 16 Diet Order: Na 2 gm, CCHO 45gm , Chopped Estimated Energy Needs: (Obese , ABW) 6070-3589 kcals (20-25 kcals/ kg) 54-65g Pro (1.0-1.2 g/kg) 1434-9187 ml (25-30 ml/kg) Pt is currently eating 75% of meals Per Meal/Nutrition Activity Record. Dietary is currently providing an estimated 1535 kcals and 85 gm Pro, per Pt PO intake this is providing an estimated 1151 kcals and 64gm Pro to meet 100 % kcal and 100% Pro needs. Current Diet Order/ Nutrition Support Na 2 gm, CCHO 45gm, Chopped Pertinent Medications Vitamin C, Calcium Carbonate, D50w (PRN), Glutose 40% (PRN), Tricor, Glucagen (PRN), INS- SS, Lantus, MOM (PRN), Vitamin D3 Pertinent Labs 8/23: Hgb/Hct 11.8/35.3 POC Glucose (last 24 hours): 180, 244, 157, 224, 189, 207 Nutritional Hx/Data Height 5 ft Height (Calculated Centimeters) 152.4 Current Weight (lbs) 178 lb Weight (Calculated Kilograms) 80.7 Weight (Calculated Grams) 97430.4 [place] Body Weight 100 LB (45.45 kg) % [place] Body Weight 178 Body Mass Index (BMI) 34.7 Weight Status Obese GI Symptoms GI Symptoms None Last BM 02/01 x1 Skin Integrity/Comment: Skin: WNL, Intact Toby: 16 Estimated Nutritional Goals BEE in Kcals: Adj wt of IBW Calories/Kcals/Kg 20-25 Kcals Calculated 0426-4226 Protein: Adj wt of IBW Protein g/k.0-1.2 Protein Calculated 54-65 Fluid: ml 1413-6550 ml (25-30 ml/kg) Nutritional Problem 1. Problem Problem Altered nutrient utilization Etiology r/t endocrine dysfunction Signs/Symptoms: aeb POC Glucose (last 24 hours ): 180, 244, 157, 224, 189, 207 Malnutrition Related to Morbid Obesity Malnutrition related to morbid obesity No Intervention/Recommendation Comments 1. Continue with Na 2 gm, CCHO 45gm, Chopped diet as ordered . 2. Continue antihyperglycemic medications for glucose control per MD order. Expected Outcomes/Goals Expected Outcomes/Goals 1. PO intake to continue to meet 75% of nutritional needs. 2. Monitor PO intake, wt, skin integrity, and nutrition related labs to trend WNL. 3. F/U as low risk in 7 days, 02/08
[2019-02-01] MEDS: Insulin Glargine 100 units/ml 10ml Vial SUBQ SCH (21:23)
[2019-02-01] MEDS: Fenofibrate, Micronized 134 mg Cap PO SCH (21:24)
[2019-02-01] MEDS: Vitamin D3 2,000 IU SGL PO SCH (21:24)
[2019-02-02] MEDS: INSULIN LISPRO SLIDING SCALE 100 UNITS/ML UNIT SUBQ SCH ×4 (06:56→21:05)
[2019-02-02] MEDS: Multivitamin w/ Minerals Tab PO SCH (08:38)
[2019-02-02] MEDS: Aspirin 81mg Chewable Tab PO SCH (08:38)
--- NOTE | 2019-02-02 13:49 | Internal Medicine Prog Note ---
Internal Medicine Subjective - Subjective Service Date: 02/02/19 Patient seen and examined:: with staff Patient is:: awake, non-verbal, non-interactive, arousable, in bed, other ( Demented.) Patient Complaints of:: other Per staff patient has:: no adverse event, no episodes of fall Internal Medicine Objective - Results Result Diagrams: 01/28/19 20:05 01/28/19 20:05 Recent Labs: Laboratory Last Values WBC 7.7 Th/cmm (4.8-10.8) 01/28/19 20:05 RBC 3.94 Mil/cmm (3.80-5.20) 01/28/19 20:05 Hgb 11.8 gm/dL (12-16) L 01/28/19 20:05 Hct 35.3 % (41.0-60) L 01/28/19 20:05 MCV 89.7 fl (81-100) 01/28/19 20:05 MCH 30.0 pg (27.0-31.0) 01/28/19 20:05 MCHC Differential 33.5 pg (28.0-36.0) 01/28/19 20:05 RDW 12.3 % (11.5-20.0) 01/28/19 20:05 Plt Count 230 Th/cmm (150-400) 01/28/19 20:05 MPV 8.7 fl 01/28/19 20:05 Neutrophils % 60.5 % (40.0-80.0) 01/28/19 20:05 Lymphocytes % 30.4 % (20.0-50.0) 01/28/19 20:05 Monocytes % 6.7 % (2.0-10.0) 01/28/19 20:05 Eosinophils % 1.6 % (0.0-5.0) 01/28/19 20:05 Basophils % 0.8 % (0.0-2.0) 01/28/19 20:05 Sodium 131 mEq/L (136-145) L 01/28/19 20:05 Potassium 3.9 mEq/L (3.5-5.1) 01/28/19 20:05 Chloride 99 mEq/L (98-107) 01/28/19 20:05 Carbon Dioxide 24.9 mEq/L (21.0-31.0) 01/28/19 20:05 Anion Gap 11.0 (7.0-16.0) 01/28/19 20:05 BUN 20 mg/dL (7-25) 01/28/19 20:05 Creatinine 0.8 mg/dL (0.6-1.2) 01/28/19 20:05 Est GFR ( Amer) TNP 01/28/19 20:05 Est GFR (Non-Af Amer) TNP 01/28/19 20:05 BUN/Creatinine Ratio 25.0 01/28/19 20:05 Glucose 350 mg/dL (70-105) H 01/28/19 20:05 POC Glucose 191 MG/DL (70 - 105) H 02/02/19 12:07 Calcium 9.7 mg/dL (8.6-10.3) 01/28/19 20:05 Total Bilirubin 0.3 mg/dL (0.3-1.0) 01/28/19 20:05 AST 12 U/L (13-39) L 01/28/19 20:05 ALT 11 U/L (7-52) 01/28/19 20:05 Alkaline Phosphatase 47 U/L (34-104) 01/28/19 20:05 Total Protein 7.0 gm/dL (6.0-8.3) 01/28/19 20:05 Albumin 3.6 gm/dL (3.7-5.3) L 01/28/19 20:05 Globulin 3.4 gm/dL 01/28/19 20:05 Albumin/Globulin Ratio 1.1 (1.0-1.8) 01/28/19 20:05 Triglycerides 171 mg/dL (<150) H 01/28/19 20:30 Cholesterol 181 mg/dL (<200) 01/28/19 20:30 LDL Cholesterol Direct 127 mg/dL (75-193) 01/28/19 20:30 HDL Cholesterol 41 mg/dL (23-92) 01/28/19 20:30 Urine Source CATH 01/30/19 16:25 Urine Color YELLOW 01/30/19 16:25 Urine Clarity CLEAR (CLEAR) 01/30/19 16:25 Urine pH 6.0 (4.6 - 8.0) 01/30/19 16:25 Ur Specific [place] 1.020 (1.005-1.030) 01/30/19 16:25 Urine Protein NEGATIVE mg/dL (NEGATIVE) 01/30/19 16:25 Urine Glucose (UA) NEGATIVE mg/dL (NEGATIVE) 01/30/19 16:25 Urine Ketones NEGATIVE mg/dL (NEGATIVE) 01/30/19 16:25 Urine Blood TRACE (NEGATIVE) 01/30/19 16:25 Urine Nitrate NEGATIVE (NEGATIVE) 01/30/19 16:25 Urine Bilirubin NEGATIVE (NEGATIVE) 01/30/19 16:25 Urine Urobilinogen 0.2 E.U./dL (0.2 - 1.0) 01/30/19 16:25 Ur Leukocyte Esterase TRACE (NEGATIVE) H 01/30/19 16:25 Urine RBC 0-2 /hpf (0-5) 01/30/19 16:25 Urine WBC 2-5 /hpf (0-5) 01/30/19 16:25 Ur Epithelial Cells FEW /lpf (FEW) 01/30/19 16:25 Urine Bacteria 2+ /hpf (NONE SEEN) H 01/30/19 16:25 - Physical Exam Vitals and I&O: Vital Signs Temp 97.4 F 02/01/19 20:00 Pulse 82 02/01/19 20:00 Resp 18 02/01/19 20:00 BP 140/95 02/01/19 20:00 Pulse Ox 98 02/01/19 20:00 Intake & Output 02/01/19 02/02/19 02/02/19 18:59 06:59 18:59 Intake Total 1250 Balance 1250 Intake: Oral 1250 Active Medications: Current Medications Acetaminophen (Tylenol) 650 mg PO Q4HR PRN PRN Reason: Mild Pain / Temp above 100 Stop: 03/29/19 22:31 Ascorbic Acid (Vitamin C) 500 mg PO DAILY [facility] Stop: 03/30/19 08:59 Last Admin: 02/02/19 08:38 Dose: 500 mg Aspirin (Aspirin Chewable) 81 mg PO DAILY [facility] Stop: 03/30/19 08:59 Last Admin: 02/02/19 08:38 Dose: 81 mg Calcium Carbonate (Calcium Carb) 600 mg PO [facility] Stop: 03/30/19 20:59 Last Admin: 02/01/19 21:24 Dose: 600 mg Citalopram Hydrobromide (Celexa) 10 mg PO [facility] Stop: 03/30/19 20:59 Last Admin: 02/01/19 21:27 Dose: 10 mg Dextrose (Glutose 40%) 18.75 gm PO PRN PRN PRN Reason: BS Below 70 & tolerate po Stop: 03/30/19 09:25 Fenofibrate (Tricor) 134 mg PO HS [facility] Stop: 03/30/19 20:59 Last Admin: 02/01/19 21:24 Dose: 134 mg Glucagon (Glucagen) 1 mg IM PRN PRN PRN Reason: BS Below 70 & not tolerate po Stop: 03/30/19 09:25 Insulin Glargine (Lantus Insulin) 10 units SUBQ HS [facility] Stop: 03/30/19 20:59 Last Admin: 02/01/19 21:23 Dose: 10 units Insulin Human Lispro (Humalog Insulin Sliding Scale) 0 units SUBQ [facility]; Protocol Stop: 03/30/19 11:29 Last Admin: 02/02/19 12:12 Dose: 2 units Lorazepam (Ativan) 0.5 mg PO Q4HR PRN; Protocol PRN Reason: Anxiety Stop: 02/27/19 21:59 Last Admin: 01/31/19 20:53 Dose: 0.5 mg Magnesium Hydroxide (Milk Of Magnesia) 30 ml PO HS PRN PRN Reason: Constipation Risperidone (Risperdal) 0.5 mg PO Q12HR [facility]; Protocol Stop: 03/30/19 08:59 Last Admin: 02/02/19 08:38 Dose: 0.5 mg Vitamin D (Vitamin D3) 2,000 iu PO HS [facility] Stop: 03/30/19 20:59 Last Admin: 02/01/19 21:24 Dose: 2,000 iu Zolpidem Tartrate (Ambien) 5 mg PO HS PRN PRN Reason: Insomnia Stop: 03/29/19 22:31 Last Admin: 01/30/19 21:03 Dose: 5 mg Physical Exam: Patient is awake, remains confused, in no acute distress. General: weak, demented, obese, NAD HEENT: NC/AT, PERRLA Neck: Supple, No JVD Lungs: CTAB Cardiovascular: RRR, Normal S1, Normal S2 Abdomen: soft, non-tender, non-distended Extremities: clear Neurological: no change Internal Medicine Assmt/Plan - Assessment Assessment: Acute Psychosis. Diabetes. Hyperlipidemia. Obesity. - Plan Plan: Continuation of care. Monitor Vitals and Labs. Continue present meds as directed. Accu-checks daily, continue DM meds as directed. Monitor Diet/Nutritional support. Psych management per Psych. Physical therapy/Occupational therapy prn. Fall precaution, frequent nursing rounds, and as needed restraints to prevent fall. Safety precaution. Supportive care. Continue collaborating with consulting specialists, case management and nursing team. Will Monitor patient and continue present care management. Nutritional Asmnt/Malnutr-PDOC - Dietary Evaluation Malnutrition Findings (Please click <Entered> for more info): Nutritional Asmnt/Malnutrition Start: 02/01/19 14: 25 Text: Status: Complete Freq: Protocol: Document 02/01/19 14:26 IAIN (Rec: 02/01/19 14:32 [email or web address]) Nutritional Asmnt/Malnutrition Patient General Information Nutritional Screening Moderate Risk Diagnosis Agitation Pertinent Medical Hx/Surgical Hx Psychosis, no other Pertinent Hx to report (H& P Limited) Subjective Information Pt is a 68-year-old female admitted on 01/27 d/t agitation with no acute distress. HT: 5 FT WT: 178 LB (80.91 kg) ABW: 120 LB (54.32 kg) BMI: 34.80 (Obese) GI: WNL, Soft, Non-Tender BM: 02/01 x1 I/O: 1140/Not Noted Skin: WNL, Intact Toby: 16 Diet Order: Na 2 gm, CCHO 45gm , Chopped Estimated Energy Needs: (Obese , ABW) 6752-1068 kcals (20-25 kcals/ kg) 54-65g Pro (1.0-1.2 g/kg) 6759-3113 ml (25-30 ml/kg) Pt is currently eating 75% of meals Per Meal/Nutrition Activity Record. Dietary is currently providing an estimated 1535 kcals and 85 gm Pro, per Pt PO intake this is providing an estimated 1151 kcals and 64gm Pro to meet 100 % kcal and 100% Pro needs. Current Diet Order/ Nutrition Support Na 2 gm, CCHO 45gm, Chopped Pertinent Medications Vitamin C, Calcium Carbonate, D50w (PRN), Glutose 40% (PRN), Tricor, Glucagen (PRN), INS- SS, Lantus, MOM (PRN), Vitamin D3 Pertinent Labs 01/28: Hgb/Hct 11.8/35.3 POC Glucose (last 24 hours): 180, 244, 157, 224, 189, 207 Nutritional Hx/Data Height 1.52 m Height (Calculated Centimeters) 152.4 Current Weight (lbs) 80.739 kg Weight (Calculated Kilograms) 80.7 Weight (Calculated Grams) 82303.4 [place] Body Weight 100 LB (45.45 kg) % [place] Body Weight 178 Body Mass Index (BMI) 34.7 Weight Status Obese GI Symptoms GI Symptoms None Last BM 02/01 x1 Skin Integrity/Comment: Skin: WNL, Intact Toby: 16 Estimated Nutritional Goals BEE in Kcals: Adj wt of IBW Calories/Kcals/Kg 20-25 Kcals Calculated 6185-0502 Protein: Adj wt of IBW Protein g/k.0-1.2 Protein Calculated 54-65 Fluid: ml 7714-7319 ml (25-30 ml/kg) Nutritional Problem 1. Problem Problem Altered nutrient utilization Etiology r/t endocrine dysfunction Signs/Symptoms: aeb POC Glucose (last 24 hours ): 180, 244, 157, 224, 189, 207 Malnutrition Related to Morbid Obesity Malnutrition related to morbid obesity No Intervention/Recommendation Comments 1. Continue with Na 2 gm, CCHO 45gm, Chopped diet as ordered . 2. Continue antihyperglycemic medications for glucose control per MD order. Expected Outcomes/Goals Expected Outcomes/Goals 1. PO intake to continue to meet 75% of nutritional needs. 2. Monitor PO intake, wt, skin integrity, and nutrition related labs to trend WNL. 3. F/U as low risk in 7 days, 02/08
--- NOTE | 2019-02-02 19:57 | Progress Notes ---
DATE: 02/02/2019 SUBJECTIVE: Chart reviewed and the patient interviewed. Also discussed the patient's condition with the staff and reviewed the records and labs. The patient is speaking mainly [place]. She is still in a depressed mood and she is still isolative and withdrawn with flat affect and poor eye contact. The patient also is trying to be cooperative, but language barrier is making it difficult for the patient to communicate with others. She is still feeling hopeless and helpless, but no suicidal ideations. I did get help from staff with translation. ASSESSMENT: The patient is still depressed. TREATMENT PLAN: Continue to monitor her behavior and her condition closely. Also, continue Celexa 10 mg every day and Risperdal 0.5 mg twice a day and Ativan p.r.n. Also, continue to work on her ineffective coping and followup. JOB# [id number]
[2019-02-02] MEDS: Insulin Glargine 100 units/ml 10ml Vial SUBQ SCH (21:05)
[2019-02-02] MEDS: Vitamin D3 2,000 IU SGL PO SCH (21:05)
[2019-02-02] MEDS: Fenofibrate, Micronized 134 mg Cap PO SCH (21:05)
[2019-02-03] MEDS: INSULIN LISPRO SLIDING SCALE 100 UNITS/ML UNIT SUBQ SCH ×4 (06:37→21:58)
[2019-02-03] MEDS: Multivitamin w/ Minerals Tab PO SCH (09:16)
[2019-02-03] MEDS: Aspirin 81mg Chewable Tab PO SCH (09:16)
--- NOTE | 2019-02-03 11:31 | Internal Medicine Prog Note ---
Internal Medicine Subjective - Subjective Service Date: 02/03/19 Patient is:: awake, non-verbal, non-interactive, arousable, in bed, other ( Demented.) Patient Complaints of:: other Per staff patient has:: no adverse event, no episodes of fall Internal Medicine Objective - Results Result Diagrams: 01/28/19 20:05 01/28/19 20:05 Recent Labs: Laboratory Last Values WBC 7.7 Th/cmm (4.8-10.8) 01/28/19 20:05 RBC 3.94 Mil/cmm (3.80-5.20) 01/28/19 20:05 Hgb 11.8 gm/dL (12-16) L 01/28/19 20:05 Hct 35.3 % (41.0-60) L 01/28/19 20:05 MCV 89.7 fl (81-100) 01/28/19 20:05 MCH 30.0 pg (27.0-31.0) 01/28/19 20:05 MCHC Differential 33.5 pg (28.0-36.0) 01/28/19 20:05 RDW 12.3 % (11.5-20.0) 01/28/19 20:05 Plt Count 230 Th/cmm (150-400) 01/28/19 20:05 MPV 8.7 fl 01/28/19 20:05 Neutrophils % 60.5 % (40.0-80.0) 01/28/19 20:05 Lymphocytes % 30.4 % (20.0-50.0) 01/28/19 20:05 Monocytes % 6.7 % (2.0-10.0) 01/28/19 20:05 Eosinophils % 1.6 % (0.0-5.0) 01/28/19 20:05 Basophils % 0.8 % (0.0-2.0) 01/28/19 20:05 Sodium 131 mEq/L (136-145) L 01/28/19 20:05 Potassium 3.9 mEq/L (3.5-5.1) 01/28/19 20:05 Chloride 99 mEq/L (98-107) 01/28/19 20:05 Carbon Dioxide 24.9 mEq/L (21.0-31.0) 01/28/19 20:05 Anion Gap 11.0 (7.0-16.0) 01/28/19 20:05 BUN 20 mg/dL (7-25) 01/28/19 20:05 Creatinine 0.8 mg/dL (0.6-1.2) 01/28/19 20:05 Est GFR ( Amer) TNP 01/28/19 20:05 Est GFR (Non-Af Amer) TNP 01/28/19 20:05 BUN/Creatinine Ratio 25.0 01/28/19 20:05 Glucose 350 mg/dL (70-105) H 01/28/19 20:05 POC Glucose 229 MG/DL (70 - 105) H 02/02/19 16:22 Calcium 9.7 mg/dL (8.6-10.3) 01/28/19 20:05 Total Bilirubin 0.3 mg/dL (0.3-1.0) 01/28/19 20:05 AST 12 U/L (13-39) L 01/28/19 20:05 ALT 11 U/L (7-52) 01/28/19 20:05 Alkaline Phosphatase 47 U/L (34-104) 01/28/19 20:05 Total Protein 7.0 gm/dL (6.0-8.3) 01/28/19 20:05 Albumin 3.6 gm/dL (3.7-5.3) L 01/28/19 20:05 Globulin 3.4 gm/dL 01/28/19 20:05 Albumin/Globulin Ratio 1.1 (1.0-1.8) 01/28/19 20:05 Triglycerides 171 mg/dL (<150) H 01/28/19 20:30 Cholesterol 181 mg/dL (<200) 01/28/19 20:30 LDL Cholesterol Direct 127 mg/dL (75-193) 01/28/19 20:30 HDL Cholesterol 41 mg/dL (23-92) 01/28/19 20:30 Urine Source CATH 01/30/19 16:25 Urine Color YELLOW 01/30/19 16:25 Urine Clarity CLEAR (CLEAR) 01/30/19 16:25 Urine pH 6.0 (4.6 - 8.0) 01/30/19 16:25 Ur Specific [place] 1.020 (1.005-1.030) 01/30/19 16:25 Urine Protein NEGATIVE mg/dL (NEGATIVE) 01/30/19 16:25 Urine Glucose (UA) NEGATIVE mg/dL (NEGATIVE) 01/30/19 16:25 Urine Ketones NEGATIVE mg/dL (NEGATIVE) 01/30/19 16:25 Urine Blood TRACE (NEGATIVE) 01/30/19 16:25 Urine Nitrate NEGATIVE (NEGATIVE) 01/30/19 16:25 Urine Bilirubin NEGATIVE (NEGATIVE) 01/30/19 16:25 Urine Urobilinogen 0.2 E.U./dL (0.2 - 1.0) 01/30/19 16:25 Ur Leukocyte Esterase TRACE (NEGATIVE) H 01/30/19 16:25 Urine RBC 0-2 /hpf (0-5) 01/30/19 16:25 Urine WBC 2-5 /hpf (0-5) 01/30/19 16:25 Ur Epithelial Cells FEW /lpf (FEW) 01/30/19 16:25 Urine Bacteria 2+ /hpf (NONE SEEN) H 01/30/19 16:25 - Physical Exam Vitals and I&O: Vital Signs Temp 97.2 F 02/03/19 06:40 Pulse 69 02/03/19 06:40 Resp 20 02/03/19 06:40 BP 150/68 02/03/19 06:40 Pulse Ox 98 02/03/19 06:40 Intake & Output 02/02/19 02/03/19 02/03/19 18:59 06:59 18:59 Intake Total 1275 240 Balance 1275 240 Intake: Oral 1275 240 Other: # Voids 2 # Bowel Movements 1 0 Active Medications: Current Medications Acetaminophen (Tylenol) 650 mg PO Q4HR PRN PRN Reason: Mild Pain / Temp above 100 Stop: 03/29/19 22:31 Ascorbic Acid (Vitamin C) 500 mg PO DAILY JOELLEN Stop: 03/30/19 08:59 Last Admin: 02/03/19 09:16 Dose: 500 mg Aspirin (Aspirin Chewable) 81 mg PO DAILY JOELLEN Stop: 03/30/19 08:59 Last Admin: 02/03/19 09:16 Dose: 81 mg Calcium Carbonate (Calcium Carb) 600 mg PO HS JOELLEN Stop: 03/30/19 20:59 Last Admin: 02/02/19 21:05 Dose: 600 mg Citalopram Hydrobromide (Celexa) 10 mg PO HS JOELLEN Stop: 03/30/19 20:59 Last Admin: 02/02/19 21:05 Dose: 10 mg Dextrose (Glutose 40%) 18.75 gm PO PRN PRN PRN Reason: BS Below 70 & tolerate po Stop: 03/30/19 09:25 Fenofibrate (Tricor) 134 mg PO HS JOELLEN Stop: 03/30/19 20:59 Last Admin: 02/02/19 21:05 Dose: 134 mg Glucagon (Glucagen) 1 mg IM PRN PRN PRN Reason: BS Below 70 & not tolerate po Stop: 03/30/19 09:25 Insulin Glargine (Lantus Insulin) 10 units SUBQ HS [facility] Stop: 03/30/19 20:59 Last Admin: 02/02/19 21:05 Dose: 10 units Insulin Human Lispro (Humalog Insulin Sliding Scale) 0 units SUBQ [facility] JOELLEN; Protocol Stop: 03/30/19 11:29 Last Admin: 02/03/19 06:37 Dose: 4 units Lorazepam (Ativan) 0.5 mg PO Q4HR PRN; Protocol PRN Reason: Anxiety Stop: 02/27/19 21:59 Last Admin: 01/31/19 20:53 Dose: 0.5 mg Magnesium Hydroxide (Milk Of Magnesia) 30 ml PO HS PRN PRN Reason: Constipation Risperidone (Risperdal) 0.5 mg PO Q12HR JOELLEN; Protocol Stop: 03/30/19 08:59 Last Admin: 02/03/19 09:16 Dose: 0.5 mg Vitamin D (Vitamin D3) 2,000 iu PO HS JOELLEN Stop: 03/30/19 20:59 Last Admin: 02/02/19 21:05 Dose: 2,000 iu Zolpidem Tartrate (Ambien) 5 mg PO HS PRN PRN Reason: Insomnia Stop: 03/29/19 22:31 Last Admin: 01/30/19 21:03 Dose: 5 mg General: weak, demented, obese, NAD HEENT: NC/AT, PERRLA Neck: Supple, No JVD Lungs: CTAB Cardiovascular: RRR, Normal S1, Normal S2 Abdomen: soft, non-tender, non-distended Extremities: clear Neurological: no change Internal Medicine Assmt/Plan - Assessment Assessment: Acute Psychosis. Diabetes. Hyperlipidemia. Obesity. - Plan Plan: Continuation of care. Monitor Vitals and Labs. Continue present meds as directed. Accu-checks daily, continue DM meds as directed. Monitor Diet/Nutritional support. Psych management per Psych. Physical therapy/Occupational therapy prn. Fall precaution, frequent nursing rounds, and as needed restraints to prevent fall. Safety precaution. Supportive care. Continue collaborating with consulting specialists, case management and nursing team. Will Monitor patient and continue present care management. Nutritional Asmnt/Malnutr-PDOC - Dietary Evaluation Malnutrition Findings (Please click <Entered> for more info): Nutritional Asmnt/Malnutrition Start: 02/01/19 14: 25 Text: Status: Complete Freq: Protocol: Document 02/01/19 14:26 IAIN (Rec: 02/01/19 14:32 [email or web address]) Nutritional Asmnt/Malnutrition Patient General Information Nutritional Screening Moderate Risk Diagnosis Agitation Pertinent Medical Hx/Surgical Hx Psychosis, no other Pertinent Hx to report (H& P Limited) Subjective Information Pt is a 68-year-old female admitted on 01/27 d/t agitation with no acute distress. HT: 5 FT WT: 178 LB (80.91 kg) ABW: 120 LB (54.32 kg) BMI: 34.80 (Obese) GI: WNL, Soft, Non-Tender BM: 02/01 x1 I/O: 1140/Not Noted Skin: WNL, Intact Toby: 16 Diet Order: Na 2 gm, CCHO 45gm , Chopped Estimated Energy Needs: (Obese , ABW) 4900-5202 kcals (20-25 kcals/ kg) 54-65g Pro (1.0-1.2 g/kg) 5470-2352 ml (25-30 ml/kg) Pt is currently eating 75% of meals Per Meal/Nutrition Activity Record. Dietary is currently providing an estimated 1535 kcals and 85 gm Pro, per Pt PO intake this is providing an estimated 1151 kcals and 64gm Pro to meet 100 % kcal and 100% Pro needs. Current Diet Order/ Nutrition Support Na 2 gm, CCHO 45gm, Chopped Pertinent Medications Vitamin C, Calcium Carbonate, D50w (PRN), Glutose 40% (PRN), Tricor, Glucagen (PRN), INS- SS, Lantus, MOM (PRN), Vitamin D3 Pertinent Labs 01/28: Hgb/Hct 11.8/35.3 POC Glucose (last 24 hours): 180, 244, 157, 224, 189, 207 Nutritional Hx/Data Height 5 ft Height (Calculated Centimeters) 152.4 Current Weight (lbs) 178 lb Weight (Calculated Kilograms) 80.7 Weight (Calculated Grams) 95852.4 [place] Body Weight 100 LB (45.45 kg) % [place] Body Weight 178 Body Mass Index (BMI) 34.7 Weight Status Obese GI Symptoms GI Symptoms None Last BM 02/01 x1 Skin Integrity/Comment: Skin: WNL, Intact Toby: 16 Estimated Nutritional Goals BEE in Kcals: Adj wt of IBW Calories/Kcals/Kg 20-25 Kcals Calculated 6891-9261 Protein: Adj wt of IBW Protein g/k.0-1.2 Protein Calculated 54-65 Fluid: ml 8820-4555 ml (25-30 ml/kg) Nutritional Problem 1. Problem Problem Altered nutrient utilization Etiology r/t endocrine dysfunction Signs/Symptoms: aeb POC Glucose (last 24 hours ): 180, 244, 157, 224, 189, 207 Malnutrition Related to Morbid Obesity Malnutrition related to morbid obesity No Intervention/Recommendation Comments 1. Continue with Na 2 gm, CCHO 45gm, Chopped diet as ordered . 2. Continue antihyperglycemic medications for glucose control per MD order. Expected Outcomes/Goals Expected Outcomes/Goals 1. PO intake to continue to meet 75% of nutritional needs. 2. Monitor PO intake, wt, skin integrity, and nutrition related labs to trend WNL. 3. F/U as low risk in 7 days, 02/08
[2019-02-03] MEDS: Vitamin D3 2,000 IU SGL PO SCH (21:52)
[2019-02-03] MEDS: Fenofibrate, Micronized 134 mg Cap PO SCH (21:52)
[2019-02-03] MEDS: Insulin Glargine 100 units/ml 10ml Vial SUBQ SCH (21:58)
--- NOTE | 2019-02-04 01:15 | Progress Notes ---
DATE: 02/03/2019 An 88-year-old female brought in here for aggressive and agitated behaviors, diagnosis of psychosis, transitioning from the ER to Geropsych Unit, needing a lot of redirections, selectively mute. On [id number], I tried to talked to her she does not say much. She threw up on herself, I told the staff about the vomiting episode. She is resting comfortably in no distress. Did not say anything about the throw up, it is just all over her. The patient is depressed, withdrawn, will likely need to follow up at a later time given that she threw up on herself and does not really interacting with me much, mostly isolative. The patient is still yelling and screaming at staff during care, easily agitated. Medications were reviewed. JOB# [id number]
[2019-02-04 05:48] VITALS: BP 155/67
[2019-02-04] MEDS: INSULIN LISPRO SLIDING SCALE 100 UNITS/ML UNIT SUBQ SCH ×4 (06:45→21:11)
[2019-02-04] MEDS: Aspirin 81mg Chewable Tab PO SCH (08:41)
[2019-02-04] MEDS: Multivitamin w/ Minerals Tab PO SCH (08:41)
--- NOTE | 2019-02-04 11:14 | Internal Medicine Prog Note ---
Internal Medicine Subjective - Subjective Service Date: 02/04/19 Patient seen and examined:: with staff Patient is:: awake, non-verbal, non-interactive, arousable, other (Demented.) Patient Complaints of:: other Per staff patient has:: no adverse event, no episodes of fall Internal Medicine Objective - Results Result Diagrams: 01/28/19 20:05 01/28/19 20:05 Recent Labs: Laboratory Last Values WBC 7.7 Th/cmm (4.8-10.8) 01/28/19 20:05 RBC 3.94 Mil/cmm (3.80-5.20) 01/28/19 20:05 Hgb 11.8 gm/dL (12-16) L 01/28/19 20:05 Hct 35.3 % (41.0-60) L 01/28/19 20:05 MCV 89.7 fl (81-100) 01/28/19 20:05 MCH 30.0 pg (27.0-31.0) 01/28/19 20:05 MCHC Differential 33.5 pg (28.0-36.0) 01/28/19 20:05 RDW 12.3 % (11.5-20.0) 01/28/19 20:05 Plt Count 230 Th/cmm (150-400) 01/28/19 20:05 MPV 8.7 fl 01/28/19 20:05 Neutrophils % 60.5 % (40.0-80.0) 01/28/19 20:05 Lymphocytes % 30.4 % (20.0-50.0) 01/28/19 20:05 Monocytes % 6.7 % (2.0-10.0) 01/28/19 20:05 Eosinophils % 1.6 % (0.0-5.0) 01/28/19 20:05 Basophils % 0.8 % (0.0-2.0) 01/28/19 20:05 Sodium 131 mEq/L (136-145) L 01/28/19 20:05 Potassium 3.9 mEq/L (3.5-5.1) 01/28/19 20:05 Chloride 99 mEq/L (98-107) 01/28/19 20:05 Carbon Dioxide 24.9 mEq/L (21.0-31.0) 01/28/19 20:05 Anion Gap 11.0 (7.0-16.0) 01/28/19 20:05 BUN 20 mg/dL (7-25) 01/28/19 20:05 Creatinine 0.8 mg/dL (0.6-1.2) 01/28/19 20:05 Est GFR ( Amer) TNP 01/28/19 20:05 Est GFR (Non-Af Amer) TNP 01/28/19 20:05 BUN/Creatinine Ratio 25.0 01/28/19 20:05 Glucose 350 mg/dL (70-105) H 01/28/19 20:05 POC Glucose 244 MG/DL (70 - 105) H 02/03/19 11:29 Calcium 9.7 mg/dL (8.6-10.3) 01/28/19 20:05 Total Bilirubin 0.3 mg/dL (0.3-1.0) 01/28/19 20:05 AST 12 U/L (13-39) L 01/28/19 20:05 ALT 11 U/L (7-52) 01/28/19 20:05 Alkaline Phosphatase 47 U/L (34-104) 01/28/19 20:05 Total Protein 7.0 gm/dL (6.0-8.3) 01/28/19 20:05 Albumin 3.6 gm/dL (3.7-5.3) L 01/28/19 20:05 Globulin 3.4 gm/dL 01/28/19 20:05 Albumin/Globulin Ratio 1.1 (1.0-1.8) 01/28/19 20:05 Triglycerides 171 mg/dL (<150) H 01/28/19 20:30 Cholesterol 181 mg/dL (<200) 01/28/19 20:30 LDL Cholesterol Direct 127 mg/dL (75-193) 01/28/19 20:30 HDL Cholesterol 41 mg/dL (23-92) 01/28/19 20:30 Urine Source CATH 01/30/19 16:25 Urine Color YELLOW 01/30/19 16:25 Urine Clarity CLEAR (CLEAR) 01/30/19 16:25 Urine pH 6.0 (4.6 - 8.0) 01/30/19 16:25 Ur Specific [place] 1.020 (1.005-1.030) 01/30/19 16:25 Urine Protein NEGATIVE mg/dL (NEGATIVE) 01/30/19 16:25 Urine Glucose (UA) NEGATIVE mg/dL (NEGATIVE) 01/30/19 16:25 Urine Ketones NEGATIVE mg/dL (NEGATIVE) 01/30/19 16:25 Urine Blood TRACE (NEGATIVE) 01/30/19 16:25 Urine Nitrate NEGATIVE (NEGATIVE) 01/30/19 16:25 Urine Bilirubin NEGATIVE (NEGATIVE) 01/30/19 16:25 Urine Urobilinogen 0.2 E.U./dL (0.2 - 1.0) 01/30/19 16:25 Ur Leukocyte Esterase TRACE (NEGATIVE) H 01/30/19 16:25 Urine RBC 0-2 /hpf (0-5) 01/30/19 16:25 Urine WBC 2-5 /hpf (0-5) 01/30/19 16:25 Ur Epithelial Cells FEW /lpf (FEW) 01/30/19 16:25 Urine Bacteria 2+ /hpf (NONE SEEN) H 01/30/19 16:25 - Physical Exam Vitals and I&O: Vital Signs Temp 98.2 F 02/04/19 06:38 Pulse 74 02/04/19 06:38 Resp 18 02/04/19 06:38 BP 134/57 02/04/19 06:38 Pulse Ox 96 02/04/19 06:38 Intake & Output 02/03/19 02/04/19 02/04/19 18:59 06:59 18:59 Intake Total 1300 120 Balance 1300 120 Intake: Oral 1300 120 Other: # Voids 2 3 # Bowel Movements 0 Active Medications: Current Medications Acetaminophen (Tylenol) 650 mg PO Q4HR PRN PRN Reason: Mild Pain / Temp above 100 Stop: 03/29/19 22:31 Ascorbic Acid (Vitamin C) 500 mg PO DAILY JOELLEN Stop: 03/30/19 08:59 Last Admin: 02/04/19 08:41 Dose: 500 mg Aspirin (Aspirin Chewable) 81 mg PO DAILY JOELLEN Stop: 03/30/19 08:59 Last Admin: 02/04/19 08:41 Dose: 81 mg Calcium Carbonate (Calcium Carb) 600 mg PO HS JOELLEN Stop: 03/30/19 20:59 Last Admin: 02/03/19 21:52 Dose: 600 mg Citalopram Hydrobromide (Celexa) 10 mg PO HS JOELLEN Stop: 03/30/19 20:59 Last Admin: 02/03/19 21:52 Dose: 10 mg Dextrose (Glutose 40%) 18.75 gm PO PRN PRN PRN Reason: BS Below 70 & tolerate po Stop: 03/30/19 09:25 Fenofibrate (Tricor) 134 mg PO HS JOELLEN Stop: 03/30/19 20:59 Last Admin: 02/03/19 21:52 Dose: 134 mg Glucagon (Glucagen) 1 mg IM PRN PRN PRN Reason: BS Below 70 & not tolerate po Stop: 03/30/19 09:25 Insulin Glargine (Lantus Insulin) 10 units SUBQ HS [facility] Stop: 03/30/19 20:59 Last Admin: 02/03/19 21:58 Dose: 10 units Insulin Human Lispro (Humalog Insulin Sliding Scale) 0 units SUBQ [facility] JOELLEN; Protocol Stop: 03/30/19 11:29 Last Admin: 02/04/19 06:45 Dose: 4 units Lorazepam (Ativan) 0.5 mg PO Q4HR PRN; Protocol PRN Reason: Anxiety Stop: 02/27/19 21:59 Last Admin: 01/31/19 20:53 Dose: 0.5 mg Magnesium Hydroxide (Milk Of Magnesia) 30 ml PO HS PRN PRN Reason: Constipation Risperidone (Risperdal) 0.5 mg PO Q12HR JOELLEN; Protocol Stop: 03/30/19 08:59 Last Admin: 02/04/19 10:01 Dose: 0.5 mg Vitamin D (Vitamin D3) 2,000 iu PO HS JOELLEN Stop: 03/30/19 20:59 Last Admin: 02/03/19 21:52 Dose: 2,000 iu Zolpidem Tartrate (Ambien) 5 mg PO HS PRN PRN Reason: Insomnia Stop: 03/29/19 22:31 Last Admin: 01/30/19 21:03 Dose: 5 mg Physical Exam: Patient is awake, irritable, isolates herself, episodes of creaming and yelling. General: weak, demented, obese, NAD HEENT: NC/AT, PERRLA Neck: Supple, No JVD Lungs: CTAB Cardiovascular: RRR, Normal S1, Normal S2 Abdomen: soft, non-tender, non-distended Extremities: clear Neurological: no change Internal Medicine Assmt/Plan - Assessment Assessment: Acute Psychosis. Diabetes. Hyperlipidemia. Obesity. - Plan Plan: Continuation of care. Monitor Vitals and Labs. Continue present meds as directed. Accu-checks daily, continue DM meds as directed. Monitor Diet/Nutritional support. Psych management per Psych. Physical therapy/Occupational therapy prn. Fall precaution, frequent nursing rounds, and as needed restraints to prevent fall. Safety precaution. Supportive care. Continue collaborating with consulting specialists, case management and nursing team. Will Monitor patient and continue present care management. Nutritional Asmnt/Malnutr-PDOC - Dietary Evaluation Malnutrition Findings (Please click <Entered> for more info): Nutritional Asmnt/Malnutrition Start: 02/01/19 14: 25 Text: Status: Complete Freq: Protocol: Document 02/01/19 14:26 IAIN (Rec: 02/01/19 14:32 [email or web address] [id number]) Nutritional Asmnt/Malnutrition Patient General Information Nutritional Screening Moderate Risk Diagnosis Agitation Pertinent Medical Hx/Surgical Hx Psychosis, no other Pertinent Hx to report (H& P Limited) Subjective Information Pt is a 68-year-old female admitted on 01/27 d/t agitation with no acute distress. HT: 5 FT WT: 178 LB (80.91 kg) ABW: 120 LB (54.32 kg) BMI: 34.80 (Obese) GI: WNL, Soft, Non-Tender BM: 02/01 x1 I/O: 1140/Not Noted Skin: WNL, Intact Toby: 16 Diet Order: Na 2 gm, CCHO 45gm , Chopped Estimated Energy Needs: (Obese , ABW) 9385-0056 kcals (20-25 kcals/ kg) 54-65g Pro (1.0-1.2 g/kg) 6367-9056 ml (25-30 ml/kg) Pt is currently eating 75% of meals Per Meal/Nutrition Activity Record. Dietary is currently providing an estimated 1535 kcals and 85 gm Pro, per Pt PO intake this is providing an estimated 1151 kcals and 64gm Pro to meet 100 % kcal and 100% Pro needs. Current Diet Order/ Nutrition Support Na 2 gm, CCHO 45gm, Chopped Pertinent Medications Vitamin C, Calcium Carbonate, D50w (PRN), Glutose 40% (PRN), Tricor, Glucagen (PRN), INS- SS, Lantus, MOM (PRN), Vitamin D3 Pertinent Labs 01/28: Hgb/Hct 11.8/35.3 POC Glucose (last 24 hours): 180, 244, 157, 224, 189, 207 Nutritional Hx/Data Height 1.52 m Height (Calculated Centimeters) 152.4 Current Weight (lbs) 80.739 kg Weight (Calculated Kilograms) 80.7 Weight (Calculated Grams) 28694.4 [place] Body Weight 100 LB (45.45 kg) % [place] Body Weight 178 Body Mass Index (BMI) 34.7 Weight Status Obese GI Symptoms GI Symptoms None Last BM 02/01 x1 Skin Integrity/Comment: Skin: WNL, Intact Toby: 16 Estimated Nutritional Goals BEE in Kcals: Adj wt of IBW Calories/Kcals/Kg 20-25 Kcals Calculated 5414-9996 Protein: Adj wt of IBW Protein g/k.0-1.2 Protein Calculated 54-65 Fluid: ml 1310-1619 ml (25-30 ml/kg) Nutritional Problem 1. Problem Problem Altered nutrient utilization Etiology r/t endocrine dysfunction Signs/Symptoms: aeb POC Glucose (last 24 hours ): 180, 244, 157, 224, 189, 207 Malnutrition Related to Morbid Obesity Malnutrition related to morbid obesity No Intervention/Recommendation Comments 1. Continue with Na 2 gm, CCHO 45gm, Chopped diet as ordered . 2. Continue antihyperglycemic medications for glucose control per MD order. Expected Outcomes/Goals Expected Outcomes/Goals 1. PO intake to continue to meet 75% of nutritional needs. 2. Monitor PO intake, wt, skin integrity, and nutrition related labs to trend WNL. 3. F/U as low risk in 7 days, 02/08
[2019-02-04] MEDS: Vitamin D3 2,000 IU SGL PO SCH (21:10)
[2019-02-04] MEDS: Fenofibrate, Micronized 134 mg Cap PO SCH (21:11)
[2019-02-04] MEDS: Insulin Glargine 100 units/ml 10ml Vial SUBQ SCH (21:12)
--- NOTE | 2019-02-04 22:51 | Progress Notes ---
DATE: 02/04/2019 SUBJECTIVE: An 88-year-old female in the hospital, aggressive behaviors, agitated behaviors. The patient is calm at this time. Per nursing staff, she needs a lot of care, able to feed herself, but some assistance provided, selectively mute. I tried to talk to her. She is not saying anything back to me. Staff noting she is confused and forgetful. Yesterday, she threw up on herself and did not say anything. I had to tell the staff, ongoing depression, withdrawn, concerns really about her ability to function at a lower level of care. Per licensed master social worker, the patient is coming in from [facility]. MEDICATIONS: Reviewed. PLAN: We will continue to monitor for any further behavioral disturbances. JOB# [id number]
[2019-02-05] MEDS: INSULIN LISPRO SLIDING SCALE 100 UNITS/ML UNIT SUBQ SCH ×4 (06:42→20:41)
[2019-02-05] MEDS: Multivitamin w/ Minerals Tab PO SCH (08:25)
[2019-02-05] MEDS: Aspirin 81mg Chewable Tab PO SCH (08:26)
--- NOTE | 2019-02-05 19:34 | Progress Notes ---
DATE: 02/05/2019 SUBJECTIVE: The patient in the hospital, poor orientation. She just smiles when I try to say Hi to her. I try to say Hi to her in Frisian and Chinese, but she just smiles, does not say anything back, mostly confused, appearing selectively mute, withdrawn, mostly keeps to self, depressed. The patient needing a higher level of staff care, withdrawn. Per social work associate, she comes from a sn[facility] facility. Ongoing behavioral disturbances, it is unclear if this is her baseline. PLAN: We will continue to monitor closely and trying to increase collateral. JOB# [id number]
[2019-02-05] MEDS: Insulin Glargine 100 units/ml 10ml Vial SUBQ SCH (20:41)
[2019-02-05] MEDS: Fenofibrate, Micronized 134 mg Cap PO SCH (20:45)
[2019-02-05] MEDS: Vitamin D3 2,000 IU SGL PO SCH (20:45)
--- NOTE | 2019-02-06 00:54 | Progress Notes ---
DATE: 02/05/2019 SUBJECTIVE: The patient was seen in the room. The patient is asleep, but easily arousable. The patient appears to be calm, but easily gets frustrated, easily gets agitated, with poor impulse control. Otherwise, the patient appears to be in no acute distress. OBJECTIVE: VITAL SIGNS: Temperature 99.5, heart rate 92, blood pressure 113/58, respirations 20, 97% on room air. HEENT: Head is atraumatic, normocephalic. Eyes: Bilateral conjunctivae are clear. Bilateral pupils are equally round and reactive. NECK: Supple. No JVD. CARDIOVASCULAR: S1 and S2, without murmur. PULMONARY: Clear to auscultation. GASTROINTESTINAL: Soft and nontender, without guarding. Positive bowel sounds. MUSCULOSKELETAL: No clubbing. No cyanosis noted. ASSESSMENT: 1. Psychosis. 2. Vitamin D deficiency. 3. Hyperlipidemia. 4. Diabetes. 5. Osteoarthritis. PLAN: We will keep the patient in Inpatient Psychiatric Unit. We will follow up with a psychiatrist to monitor the patient's condition and behavior. Treatment plans were discussed with the patient's nurse. Treatment plans were discussed with Dr. Azar. JOB# [id number]
[2019-02-06] MEDS: INSULIN LISPRO SLIDING SCALE 100 UNITS/ML UNIT SUBQ SCH ×4 (06:45→20:58)
[2019-02-06] MEDS: Aspirin 81mg Chewable Tab PO SCH (09:35)
[2019-02-06] MEDS: Multivitamin w/ Minerals Tab PO SCH (09:35)
--- NOTE | 2019-02-06 10:34 | Internal Medicine Prog Note ---
Internal Medicine Subjective - Subjective Patient seen and examined:: with staff Patient is:: awake, arousable, in bed, other (Demented. portuguese speaking) Patient Complaints of:: other Per staff patient has:: no adverse event, no episodes of fall Internal Medicine Objective - Results Result Diagrams: 01/28/19 20:05 01/28/19 20:05 Recent Labs: Laboratory Last Values WBC 7.7 Th/cmm (4.8-10.8) 01/28/19 20:05 RBC 3.94 Mil/cmm (3.80-5.20) 01/28/19 20:05 Hgb 11.8 gm/dL (12-16) L 01/28/19 20:05 Hct 35.3 % (41.0-60) L 01/28/19 20:05 MCV 89.7 fl (81-100) 01/28/19 20:05 MCH 30.0 pg (27.0-31.0) 01/28/19 20:05 MCHC Differential 33.5 pg (28.0-36.0) 01/28/19 20:05 RDW 12.3 % (11.5-20.0) 01/28/19 20:05 Plt Count 230 Th/cmm (150-400) 01/28/19 20:05 MPV 8.7 fl 01/28/19 20:05 Neutrophils % 60.5 % (40.0-80.0) 01/28/19 20:05 Lymphocytes % 30.4 % (20.0-50.0) 01/28/19 20:05 Monocytes % 6.7 % (2.0-10.0) 01/28/19 20:05 Eosinophils % 1.6 % (0.0-5.0) 01/28/19 20:05 Basophils % 0.8 % (0.0-2.0) 01/28/19 20:05 Sodium 131 mEq/L (136-145) L 01/28/19 20:05 Potassium 3.9 mEq/L (3.5-5.1) 01/28/19 20:05 Chloride 99 mEq/L (98-107) 01/28/19 20:05 Carbon Dioxide 24.9 mEq/L (21.0-31.0) 01/28/19 20:05 Anion Gap 11.0 (7.0-16.0) 01/28/19 20:05 BUN 20 mg/dL (7-25) 01/28/19 20:05 Creatinine 0.8 mg/dL (0.6-1.2) 01/28/19 20:05 Est GFR ( Amer) TNP 01/28/19 20:05 Est GFR (Non-Af Amer) TNP 01/28/19 20:05 BUN/Creatinine Ratio 25.0 01/28/19 20:05 Glucose 350 mg/dL (70-105) H 01/28/19 20:05 POC Glucose 244 MG/DL (70 - 105) H 02/03/19 11:29 Calcium 9.7 mg/dL (8.6-10.3) 01/28/19 20:05 Total Bilirubin 0.3 mg/dL (0.3-1.0) 01/28/19 20:05 AST 12 U/L (13-39) L 01/28/19 20:05 ALT 11 U/L (7-52) 01/28/19 20:05 Alkaline Phosphatase 47 U/L (34-104) 01/28/19 20:05 Total Protein 7.0 gm/dL (6.0-8.3) 01/28/19 20:05 Albumin 3.6 gm/dL (3.7-5.3) L 01/28/19 20:05 Globulin 3.4 gm/dL 01/28/19 20:05 Albumin/Globulin Ratio 1.1 (1.0-1.8) 01/28/19 20:05 Triglycerides 171 mg/dL (<150) H 01/28/19 20:30 Cholesterol 181 mg/dL (<200) 01/28/19 20:30 LDL Cholesterol Direct 127 mg/dL (75-193) 01/28/19 20:30 HDL Cholesterol 41 mg/dL (23-92) 01/28/19 20:30 Urine Source CATH 01/30/19 16:25 Urine Color YELLOW 01/30/19 16:25 Urine Clarity CLEAR (CLEAR) 01/30/19 16:25 Urine pH 6.0 (4.6 - 8.0) 01/30/19 16:25 Ur Specific [place] 1.020 (1.005-1.030) 01/30/19 16:25 Urine Protein NEGATIVE mg/dL (NEGATIVE) 01/30/19 16:25 Urine Glucose (UA) NEGATIVE mg/dL (NEGATIVE) 01/30/19 16:25 Urine Ketones NEGATIVE mg/dL (NEGATIVE) 01/30/19 16:25 Urine Blood TRACE (NEGATIVE) 01/30/19 16:25 Urine Nitrate NEGATIVE (NEGATIVE) 01/30/19 16:25 Urine Bilirubin NEGATIVE (NEGATIVE) 01/30/19 16:25 Urine Urobilinogen 0.2 E.U./dL (0.2 - 1.0) 01/30/19 16:25 Ur Leukocyte Esterase TRACE (NEGATIVE) H 01/30/19 16:25 Urine RBC 0-2 /hpf (0-5) 01/30/19 16:25 Urine WBC 2-5 /hpf (0-5) 01/30/19 16:25 Ur Epithelial Cells FEW /lpf (FEW) 01/30/19 16:25 Urine Bacteria 2+ /hpf (NONE SEEN) H 01/30/19 16:25 - Physical Exam Vitals and I&O: Vital Signs Temp 98.1 F 02/06/19 06:23 Pulse 72 02/06/19 06:23 Resp 19 02/06/19 08:00 BP 140/63 02/06/19 06:23 Pulse Ox 97 02/06/19 06:23 Intake & Output 02/05/19 02/06/19 02/06/19 18:59 06:59 18:59 Intake Total 850 960 Output Total 1 Balance 850 959 Intake: Oral 850 960 Output: Urine/Stool Mix 1 Other: # Voids 4 1 # Bowel Movements 1 1 Active Medications: Current Medications Acetaminophen (Tylenol) 650 mg PO Q4HR PRN PRN Reason: Mild Pain / Temp above 100 Stop: 03/29/19 22:31 Ascorbic Acid (Vitamin C) 500 mg PO DAILY [facility] Stop: 03/30/19 08:59 Last Admin: 02/06/19 09:35 Dose: 500 mg Aspirin (Aspirin Chewable) 81 mg PO DAILY [facility] Stop: 03/30/19 08:59 Last Admin: 02/06/19 09:35 Dose: 81 mg Calcium Carbonate (Calcium Carb) 600 mg PO HS [facility] Stop: 03/30/19 20:59 Last Admin: 02/05/19 20:45 Dose: 600 mg Citalopram Hydrobromide (Celexa) 10 mg PO HS [facility] Stop: 03/30/19 20:59 Last Admin: 02/05/19 20:45 Dose: 10 mg Dextrose (Glutose 40%) 18.75 gm PO PRN PRN PRN Reason: BS Below 70 & tolerate po Stop: 03/30/19 09:25 Fenofibrate (Tricor) 134 mg PO HS [facility] Stop: 03/30/19 20:59 Last Admin: 02/05/19 20:45 Dose: 134 mg Glucagon (Glucagen) 1 mg IM PRN PRN PRN Reason: BS Below 70 & not tolerate po Stop: 03/30/19 09:25 Insulin Glargine (Lantus Insulin) 10 units SUBQ [facility] Stop: 03/30/19 20:59 Last Admin: 02/05/19 20:41 Dose: 10 units Insulin Human Lispro (Humalog Insulin Sliding Scale) 0 units SUBQ [facility]; Protocol Stop: 03/30/19 11:29 Last Admin: 02/06/19 06:45 Dose: 2 units Lorazepam (Ativan) 0.5 mg PO Q4HR PRN; Protocol PRN Reason: Anxiety Stop: 02/27/19 21:59 Last Admin: 01/31/19 20:53 Dose: 0.5 mg Magnesium Hydroxide (Milk Of Magnesia) 30 ml PO HS PRN PRN Reason: Constipation Risperidone (Risperdal) 0.5 mg PO Q12HR [facility]; Protocol Stop: 03/30/19 08:59 Last Admin: 02/06/19 09:35 Dose: 0.5 mg Vitamin D (Vitamin D3) 2,000 iu PO HS [facility] Stop: 03/30/19 20:59 Last Admin: 02/05/19 20:45 Dose: 2,000 iu Zolpidem Tartrate (Ambien) 5 mg PO HS PRN PRN Reason: Insomnia Stop: 03/29/19 22:31 Last Admin: 01/30/19 21:03 Dose: 5 mg General: weak, demented, obese, NAD HEENT: NC/AT, PERRLA Neck: Supple, No JVD Lungs: CTAB Cardiovascular: RRR, Normal S1, Normal S2 Abdomen: soft, non-tender, non-distended Extremities: clear Neurological: no change Internal Medicine Assmt/Plan - Assessment Assessment: Acute Psychosis Diabetes Hyperlipidemia Obesity OA - Plan Plan: Continue current treatment plan. Monitor Labs.Continue current medications Continue to monitor VS Monitor Diet/Nutritional support. Psych management per Psychiatry. Pain Management. PT/OT prn Safety precaution, Fall precaution, frequent nursing round. Supportive care. Continue collaborating with consulting specialists, case management and nursing team. Nutritional Asmnt/Malnutr-PDOC - Dietary Evaluation Malnutrition Findings (Please click <Entered> for more info): Nutritional Asmnt/Malnutrition Start: 02/01/19 14: 25 Text: Status: Complete Freq: Protocol: Document 02/01/19 14:26 IAIN (Rec: 02/01/19 14:32 [email or web address]) Nutritional Asmnt/Malnutrition Patient General Information Nutritional Screening Moderate Risk Diagnosis Agitation Pertinent Medical Hx/Surgical Hx Psychosis, no other Pertinent Hx to report (H& P Limited) Subjective Information Pt is a 68-year-old female admitted on 01/27 d/t agitation with no acute distress. HT: 5 FT WT: 178 LB (80.91 kg) ABW: 120 LB (54.32 kg) BMI: 34.80 (Obese) GI: WNL, Soft, Non-Tender BM: 02/01 x1 I/O: 1140/Not Noted Skin: WNL, Intact Toby: 16 Diet Order: Na 2 gm, CCHO 45gm , Chopped Estimated Energy Needs: (Obese , ABW) 8246-7977 kcals (20-25 kcals/ kg) 54-65g Pro (1.0-1.2 g/kg) 3425-2657 ml (25-30 ml/kg) Pt is currently eating 75% of meals Per Meal/Nutrition Activity Record. Dietary is currently providing an estimated 1535 kcals and 85 gm Pro, per Pt PO intake this is providing an estimated 1151 kcals and 64gm Pro to meet 100 % kcal and 100% Pro needs. Current Diet Order/ Nutrition Support Na 2 gm, CCHO 45gm, Chopped Pertinent Medications Vitamin C, Calcium Carbonate, D50w (PRN), Glutose 40% (PRN), Tricor, Glucagen (PRN), INS- SS, Lantus, MOM (PRN), Vitamin D3 Pertinent Labs 01/28: Hgb/Hct 11.8/35.3 POC Glucose (last 24 hours): 180, 244, 157, 224, 189, 207 Nutritional Hx/Data Height 5 ft Height (Calculated Centimeters) 152.4 Current Weight (lbs) 178 lb Weight (Calculated Kilograms) 80.7 Weight (Calculated Grams) 06635.4 [place] Body Weight 100 LB (45.45 kg) % [place] Body Weight 178 Body Mass Index (BMI) 34.7 Weight Status Obese GI Symptoms GI Symptoms None Last BM 02/01 x1 Skin Integrity/Comment: Skin: WNL, Intact Toby: 16 Estimated Nutritional Goals BEE in Kcals: Adj wt of IBW Calories/Kcals/Kg 20-25 Kcals Calculated 9883-2952 Protein: Adj wt of IBW Protein g/k.0-1.2 Protein Calculated 54-65 Fluid: ml 9712-6096 ml (25-30 ml/kg) Nutritional Problem 1. Problem Problem Altered nutrient utilization Etiology r/t endocrine dysfunction Signs/Symptoms: aeb POC Glucose (last 24 hours ): 180, 244, 157, 224, 189, 207 Malnutrition Related to Morbid Obesity Malnutrition related to morbid obesity No Intervention/Recommendation Comments 1. Continue with Na 2 gm, CCHO 45gm, Chopped diet as ordered . 2. Continue antihyperglycemic medications for glucose control per MD order. Expected Outcomes/Goals Expected Outcomes/Goals 1. PO intake to continue to meet 75% of nutritional needs. 2. Monitor PO intake, wt, skin integrity, and nutrition related labs to trend WNL. 3. F/U as low risk in 7 days, 02/08
--- NOTE | 2019-02-06 20:03 | Progress Notes ---
DATE: 02/06/2019 SUBJECTIVE: The patient is currently in the hospital, AO to name only, selectively mute, mostly withdrawn, keeps to self. The patient slept for about 7 hours. When I go talk to the patient, she just smiles to me, looks at me, then goes back to sleep. The patient mostly answering to staff, I do not know. She can become easily agitated, yelling and screaming at staff during hygiene care at bedtime. PLAN: We will continue to monitor. Continue medications at current dosing. Seems generally calmer, but still some periods of unruly DICTATION ENDS HERE JOB# [id number]
[2019-02-06] MEDS: Vitamin D3 2,000 IU SGL PO SCH (20:58)
[2019-02-06] MEDS: Fenofibrate, Micronized 134 mg Cap PO SCH (20:58)
[2019-02-06] MEDS: Insulin Glargine 100 units/ml 10ml Vial SUBQ SCH (20:59)
[2019-02-07] MEDS: INSULIN LISPRO SLIDING SCALE 100 UNITS/ML UNIT SUBQ SCH ×4 (06:57→21:43)
[2019-02-07] MEDS: Aspirin 81mg Chewable Tab PO SCH (09:59)
[2019-02-07] MEDS: Multivitamin w/ Minerals Tab PO SCH (09:59)
--- NOTE | 2019-02-07 12:52 | Internal Medicine Prog Note ---
Internal Medicine Subjective - Subjective Service Date: 02/07/19 Patient seen and examined:: with staff Patient is:: awake, arousable, in bed, agitated, other (Demented. slovenian speaking) Patient Complaints of:: other Per staff patient has:: no adverse event, no episodes of fall Internal Medicine Objective - Results Result Diagrams: 01/28/19 20:05 01/28/19 20:05 Recent Labs: Laboratory Last Values WBC 7.7 Th/cmm (4.8-10.8) 01/28/19 20:05 RBC 3.94 Mil/cmm (3.80-5.20) 01/28/19 20:05 Hgb 11.8 gm/dL (12-16) L 01/28/19 20:05 Hct 35.3 % (41.0-60) L 01/28/19 20:05 MCV 89.7 fl (81-100) 01/28/19 20:05 MCH 30.0 pg (27.0-31.0) 01/28/19 20:05 MCHC Differential 33.5 pg (28.0-36.0) 01/28/19 20:05 RDW 12.3 % (11.5-20.0) 01/28/19 20:05 Plt Count 230 Th/cmm (150-400) 01/28/19 20:05 MPV 8.7 fl 01/28/19 20:05 Neutrophils % 60.5 % (40.0-80.0) 01/28/19 20:05 Lymphocytes % 30.4 % (20.0-50.0) 01/28/19 20:05 Monocytes % 6.7 % (2.0-10.0) 01/28/19 20:05 Eosinophils % 1.6 % (0.0-5.0) 01/28/19 20:05 Basophils % 0.8 % (0.0-2.0) 01/28/19 20:05 Sodium 131 mEq/L (136-145) L 01/28/19 20:05 Potassium 3.9 mEq/L (3.5-5.1) 01/28/19 20:05 Chloride 99 mEq/L (98-107) 01/28/19 20:05 Carbon Dioxide 24.9 mEq/L (21.0-31.0) 01/28/19 20:05 Anion Gap 11.0 (7.0-16.0) 01/28/19 20:05 BUN 20 mg/dL (7-25) 01/28/19 20:05 Creatinine 0.8 mg/dL (0.6-1.2) 01/28/19 20:05 Est GFR ( Amer) TNP 01/28/19 20:05 Est GFR (Non-Af Amer) TNP 01/28/19 20:05 BUN/Creatinine Ratio 25.0 01/28/19 20:05 Glucose 350 mg/dL (70-105) H 01/28/19 20:05 POC Glucose 154 MG/DL (70 - 105) H 02/06/19 11:51 Calcium 9.7 mg/dL (8.6-10.3) 01/28/19 20:05 Total Bilirubin 0.3 mg/dL (0.3-1.0) 01/28/19 20:05 AST 12 U/L (13-39) L 01/28/19 20:05 ALT 11 U/L (7-52) 01/28/19 20:05 Alkaline Phosphatase 47 U/L (34-104) 01/28/19 20:05 Total Protein 7.0 gm/dL (6.0-8.3) 01/28/19 20:05 Albumin 3.6 gm/dL (3.7-5.3) L 01/28/19 20:05 Globulin 3.4 gm/dL 01/28/19 20:05 Albumin/Globulin Ratio 1.1 (1.0-1.8) 01/28/19 20:05 Triglycerides 171 mg/dL (<150) H 01/28/19 20:30 Cholesterol 181 mg/dL (<200) 01/28/19 20:30 LDL Cholesterol Direct 127 mg/dL (75-193) 01/28/19 20:30 HDL Cholesterol 41 mg/dL (23-92) 01/28/19 20:30 Urine Source CATH 01/30/19 16:25 Urine Color YELLOW 01/30/19 16:25 Urine Clarity CLEAR (CLEAR) 01/30/19 16:25 Urine pH 6.0 (4.6 - 8.0) 01/30/19 16:25 Ur Specific [place] 1.020 (1.005-1.030) 01/30/19 16:25 Urine Protein NEGATIVE mg/dL (NEGATIVE) 01/30/19 16:25 Urine Glucose (UA) NEGATIVE mg/dL (NEGATIVE) 01/30/19 16:25 Urine Ketones NEGATIVE mg/dL (NEGATIVE) 01/30/19 16:25 Urine Blood TRACE (NEGATIVE) 01/30/19 16:25 Urine Nitrate NEGATIVE (NEGATIVE) 01/30/19 16:25 Urine Bilirubin NEGATIVE (NEGATIVE) 01/30/19 16:25 Urine Urobilinogen 0.2 E.U./dL (0.2 - 1.0) 01/30/19 16:25 Ur Leukocyte Esterase TRACE (NEGATIVE) H 01/30/19 16:25 Urine RBC 0-2 /hpf (0-5) 01/30/19 16:25 Urine WBC 2-5 /hpf (0-5) 01/30/19 16:25 Ur Epithelial Cells FEW /lpf (FEW) 01/30/19 16:25 Urine Bacteria 2+ /hpf (NONE SEEN) H 01/30/19 16:25 - Physical Exam Vitals and I&O: Vital Signs Temp 98.2 F 02/07/19 06:09 Pulse 76 02/07/19 06:09 Resp 20 02/07/19 06:09 BP 116/74 02/07/19 06:09 Pulse Ox 97 02/07/19 06:09 Intake & Output 02/06/19 02/07/19 02/07/19 18:59 06:59 18:59 Intake Total 800 360 Output Total 1 Balance 800 359 Intake: Oral 800 360 Output: Urine/Stool Mix 1 Other: # Voids 3 1 # Bowel Movements 0 1 Active Medications: Current Medications Acetaminophen (Tylenol) 650 mg PO Q4HR PRN PRN Reason: Mild Pain / Temp above 100 Stop: 03/29/19 22:31 Ascorbic Acid (Vitamin C) 500 mg PO DAILY [facility] Stop: 03/30/19 08:59 Last Admin: 02/07/19 09:59 Dose: 500 mg Aspirin (Aspirin Chewable) 81 mg PO DAILY [facility] Stop: 03/30/19 08:59 Last Admin: 02/07/19 09:59 Dose: 81 mg Calcium Carbonate (Calcium Carb) 600 mg PO HS [facility] Stop: 03/30/19 20:59 Last Admin: 02/06/19 20:57 Dose: 600 mg Citalopram Hydrobromide (Celexa) 10 mg PO HS [facility] Stop: 03/30/19 20:59 Last Admin: 02/06/19 20:57 Dose: 10 mg Dextrose (Glutose 40%) 18.75 gm PO PRN PRN PRN Reason: BS Below 70 & tolerate po Stop: 03/30/19 09:25 Fenofibrate (Tricor) 134 mg PO HS [facility] Stop: 03/30/19 20:59 Last Admin: 02/06/19 20:58 Dose: 134 mg Glucagon (Glucagen) 1 mg IM PRN PRN PRN Reason: BS Below 70 & not tolerate po Stop: 03/30/19 09:25 Insulin Glargine (Lantus Insulin) 10 units SUBQ [facility] Stop: 03/30/19 20:59 Last Admin: 02/06/19 20:59 Dose: 10 units Insulin Human Lispro (Humalog Insulin Sliding Scale) 0 units SUBQ [facility]; Protocol Stop: 03/30/19 11:29 Last Admin: 02/07/19 11:46 Dose: 2 units Lorazepam (Ativan) 0.5 mg PO Q4HR PRN; Protocol PRN Reason: Anxiety Stop: 02/27/19 21:59 Last Admin: 01/31/19 20:53 Dose: 0.5 mg Magnesium Hydroxide (Milk Of Magnesia) 30 ml PO HS PRN PRN Reason: Constipation Risperidone (Risperdal) 0.5 mg PO Q12HR [facility]; Protocol Stop: 03/30/19 08:59 Last Admin: 02/07/19 09:59 Dose: 0.5 mg Vitamin D (Vitamin D3) 2,000 iu PO HS [facility] Stop: 03/30/19 20:59 Last Admin: 02/06/19 20:58 Dose: 2,000 iu Zolpidem Tartrate (Ambien) 5 mg PO HS PRN PRN Reason: Insomnia Stop: 03/29/19 22:31 Last Admin: 01/30/19 21:03 Dose: 5 mg Physical Exam: Patient is awake, easily agitated, continues to have episodes of creaming and yelling. General: weak, demented, obese, NAD HEENT: NC/AT, PERRLA Neck: Supple, No JVD Lungs: CTAB Cardiovascular: RRR, Normal S1, Normal S2 Abdomen: soft, non-tender, non-distended Extremities: clear Neurological: no change Internal Medicine Assmt/Plan - Assessment Assessment: Acute Psychosis. Diabetes. Hyperlipidemia. Obesity. OA. - Plan Plan: Continuation of care. Monitor Vitals and Labs. Continue present meds as directed. Accu-checks daily, continue DM meds as directed. Monitor Diet/Nutritional support. Psych management per Psych. Physical therapy/Occupational therapy prn. Fall precaution, frequent nursing rounds, and as needed restraints to prevent fall. Safety precaution. Supportive care. Continue collaborating with consulting specialists, case management and nursing team. Will Monitor patient and continue present care management. Nutritional Asmnt/Malnutr-PDOC - Dietary Evaluation Malnutrition Findings (Please click <Entered> for more info): Nutritional Asmnt/Malnutrition Start: 02/01/19 14: 25 Text: Status: Complete Freq: Protocol: Document 02/01/19 14:26 IAIN (Rec: 02/01/19 14:32 [email or web address]) Nutritional Asmnt/Malnutrition Patient General Information Nutritional Screening Moderate Risk Diagnosis Agitation Pertinent Medical Hx/Surgical Hx Psychosis, no other Pertinent Hx to report (H& P Limited) Subjective Information Pt is a 68-year-old female admitted on 01/27 d/t agitation with no acute distress. HT: 5 FT WT: 178 LB (80.91 kg) ABW: 120 LB (54.32 kg) BMI: 34.80 (Obese) GI: WNL, Soft, Non-Tender BM: 02/01 x1 I/O: 1140/Not Noted Skin: WNL, Intact Toby: 16 Diet Order: Na 2 gm, CCHO 45gm , Chopped Estimated Energy Needs: (Obese , ABW) 1774-6056 kcals (20-25 kcals/ kg) 54-65g Pro (1.0-1.2 g/kg) 5422-6268 ml (25-30 ml/kg) Pt is currently eating 75% of meals Per Meal/Nutrition Activity Record. Dietary is currently providing an estimated 1535 kcals and 85 gm Pro, per Pt PO intake this is providing an estimated 1151 kcals and 64gm Pro to meet 100 % kcal and 100% Pro needs. Current Diet Order/ Nutrition Support Na 2 gm, CCHO 45gm, Chopped Pertinent Medications Vitamin C, Calcium Carbonate, D50w (PRN), Glutose 40% (PRN), Tricor, Glucagen (PRN), INS- SS, Lantus, MOM (PRN), Vitamin D3 Pertinent Labs 01/28: Hgb/Hct 11.8/35.3 POC Glucose (last 24 hours): 180, 244, 157, 224, 189, 207 Nutritional Hx/Data Height 1.52 m Height (Calculated Centimeters) 152.4 Current Weight (lbs) 80.739 kg Weight (Calculated Kilograms) 80.7 Weight (Calculated Grams) 10173.4 [place] Body Weight 100 LB (45.45 kg) % [place] Body Weight 178 Body Mass Index (BMI) 34.7 Weight Status Obese GI Symptoms GI Symptoms None Last BM 02/01 x1 Skin Integrity/Comment: Skin: WNL, Intact Toby: 16 Estimated Nutritional Goals BEE in Kcals: Adj wt of IBW Calories/Kcals/Kg 20-25 Kcals Calculated 3936-3275 Protein: Adj wt of IBW Protein g/k.0-1.2 Protein Calculated 54-65 Fluid: ml 5098-3940 ml (25-30 ml/kg) Nutritional Problem 1. Problem Problem Altered nutrient utilization Etiology r/t endocrine dysfunction Signs/Symptoms: aeb POC Glucose (last 24 hours ): 180, 244, 157, 224, 189, 207 Malnutrition Related to Morbid Obesity Malnutrition related to morbid obesity No Intervention/Recommendation Comments 1. Continue with Na 2 gm, CCHO 45gm, Chopped diet as ordered . 2. Continue antihyperglycemic medications for glucose control per MD order. Expected Outcomes/Goals Expected Outcomes/Goals 1. PO intake to continue to meet 75% of nutritional needs. 2. Monitor PO intake, wt, skin integrity, and nutrition related labs to trend WNL. 3. F/U as low risk in 7 days, 02/08
--- NOTE | 2019-02-07 16:22 | Progress Notes ---
DATE: 02/07/2019 SUBJECTIVE: The patient in the hospital, refused breakfast, depressed. Slept about 10 hours last night, still very confused, unable to talk to her, she just stares at me blankly, smiles, goes back to sleep. Not much change in mental status examination. Staff noting she is very poorly oriented, sad, withdrawn, selectively mute. ASSESSMENT: The patient remains symptomatic, still withdrawn, easily agitated and irritable. PLAN: We will continue to monitor. Continue dosing of Risperdal and Celexa. JOB# [id number]
[2019-02-07] MEDS: Vitamin D3 2,000 IU SGL PO SCH (21:32)
[2019-02-07] MEDS: Fenofibrate, Micronized 134 mg Cap PO SCH (21:33)
[2019-02-07] MEDS: Insulin Glargine 100 units/ml 10ml Vial SUBQ SCH (21:44)
[2019-02-08] MEDS: INSULIN LISPRO SLIDING SCALE 100 UNITS/ML UNIT SUBQ SCH ×4 (06:53→21:27)
[2019-02-08] MEDS: Aspirin 81mg Chewable Tab PO SCH (10:15)
[2019-02-08] MEDS: Multivitamin w/ Minerals Tab PO SCH (10:16)
--- NOTE | 2019-02-08 17:38 | Internal Medicine Prog Note ---
Internal Medicine Subjective - Subjective Service Date: 02/08/19 Patient is:: awake, arousable, in bed, agitated, other (Demented. citizen of [place] speaking) Patient Complaints of:: other Per staff patient has:: no adverse event, no episodes of fall Internal Medicine Objective - Results Result Diagrams: 01/28/19 20:05 01/28/19 20:05 Recent Labs: Laboratory Last Values WBC 7.7 Th/cmm (4.8-10.8) 01/28/19 20:05 RBC 3.94 Mil/cmm (3.80-5.20) 01/28/19 20:05 Hgb 11.8 gm/dL (12-16) L 01/28/19 20:05 Hct 35.3 % (41.0-60) L 01/28/19 20:05 MCV 89.7 fl (81-100) 01/28/19 20:05 MCH 30.0 pg (27.0-31.0) 01/28/19 20:05 MCHC Differential 33.5 pg (28.0-36.0) 01/28/19 20:05 RDW 12.3 % (11.5-20.0) 01/28/19 20:05 Plt Count 230 Th/cmm (150-400) 01/28/19 20:05 MPV 8.7 fl 01/28/19 20:05 Neutrophils % 60.5 % (40.0-80.0) 01/28/19 20:05 Lymphocytes % 30.4 % (20.0-50.0) 01/28/19 20:05 Monocytes % 6.7 % (2.0-10.0) 01/28/19 20:05 Eosinophils % 1.6 % (0.0-5.0) 01/28/19 20:05 Basophils % 0.8 % (0.0-2.0) 01/28/19 20:05 Sodium 131 mEq/L (136-145) L 01/28/19 20:05 Potassium 3.9 mEq/L (3.5-5.1) 01/28/19 20:05 Chloride 99 mEq/L (98-107) 01/28/19 20:05 Carbon Dioxide 24.9 mEq/L (21.0-31.0) 01/28/19 20:05 Anion Gap 11.0 (7.0-16.0) 01/28/19 20:05 BUN 20 mg/dL (7-25) 01/28/19 20:05 Creatinine 0.8 mg/dL (0.6-1.2) 01/28/19 20:05 Est GFR ( Amer) TNP 01/28/19 20:05 Est GFR (Non-Af Amer) TNP 01/28/19 20:05 BUN/Creatinine Ratio 25.0 01/28/19 20:05 Glucose 350 mg/dL (70-105) H 01/28/19 20:05 POC Glucose 150 MG/DL (70 - 105) H 02/07/19 17:00 Calcium 9.7 mg/dL (8.6-10.3) 01/28/19 20:05 Total Bilirubin 0.3 mg/dL (0.3-1.0) 01/28/19 20:05 AST 12 U/L (13-39) L 01/28/19 20:05 ALT 11 U/L (7-52) 01/28/19 20:05 Alkaline Phosphatase 47 U/L (34-104) 01/28/19 20:05 Total Protein 7.0 gm/dL (6.0-8.3) 01/28/19 20:05 Albumin 3.6 gm/dL (3.7-5.3) L 01/28/19 20:05 Globulin 3.4 gm/dL 01/28/19 20:05 Albumin/Globulin Ratio 1.1 (1.0-1.8) 01/28/19 20:05 Triglycerides 171 mg/dL (<150) H 01/28/19 20:30 Cholesterol 181 mg/dL (<200) 01/28/19 20:30 LDL Cholesterol Direct 127 mg/dL (75-193) 01/28/19 20:30 HDL Cholesterol 41 mg/dL (23-92) 01/28/19 20:30 Urine Source CATH 01/30/19 16:25 Urine Color YELLOW 01/30/19 16:25 Urine Clarity CLEAR (CLEAR) 01/30/19 16:25 Urine pH 6.0 (4.6 - 8.0) 01/30/19 16:25 Ur Specific [place] 1.020 (1.005-1.030) 01/30/19 16:25 Urine Protein NEGATIVE mg/dL (NEGATIVE) 01/30/19 16:25 Urine Glucose (UA) NEGATIVE mg/dL (NEGATIVE) 01/30/19 16:25 Urine Ketones NEGATIVE mg/dL (NEGATIVE) 01/30/19 16:25 Urine Blood TRACE (NEGATIVE) 01/30/19 16:25 Urine Nitrate NEGATIVE (NEGATIVE) 01/30/19 16:25 Urine Bilirubin NEGATIVE (NEGATIVE) 01/30/19 16:25 Urine Urobilinogen 0.2 E.U./dL (0.2 - 1.0) 01/30/19 16:25 Ur Leukocyte Esterase TRACE (NEGATIVE) H 01/30/19 16:25 Urine RBC 0-2 /hpf (0-5) 01/30/19 16:25 Urine WBC 2-5 /hpf (0-5) 01/30/19 16:25 Ur Epithelial Cells FEW /lpf (FEW) 01/30/19 16:25 Urine Bacteria 2+ /hpf (NONE SEEN) H 01/30/19 16:25 - Physical Exam Vitals and I&O: Vital Signs Temp 98.0 F 02/08/19 14:00 Pulse 74 02/08/19 14:00 Resp 20 02/08/19 14:00 BP 136/72 02/08/19 14:00 Pulse Ox 97 02/08/19 14:00 Intake & Output 02/07/19 02/08/19 02/08/19 18:59 06:59 18:59 Intake Total 800 60 Balance 800 60 Intake: Oral 800 60 Other: # Voids 2 1 # Bowel Movements 0 1 Stool Characteristics Formed Brown Active Medications: Current Medications Acetaminophen (Tylenol) 650 mg PO Q4HR PRN PRN Reason: Mild Pain / Temp above 100 Stop: 03/29/19 22:31 Ascorbic Acid (Vitamin C) 500 mg PO DAILY [facility] Stop: 03/30/19 08:59 Last Admin: 02/08/19 10:16 Dose: 500 mg Aspirin (Aspirin Chewable) 81 mg PO DAILY [facility] Stop: 03/30/19 08:59 Last Admin: 02/08/19 10:15 Dose: 81 mg Calcium Carbonate (Calcium Carb) 600 mg PO HS [facility] Stop: 03/30/19 20:59 Last Admin: 02/07/19 21:32 Dose: 600 mg Citalopram Hydrobromide (Celexa) 15 mg PO HS [facility] Stop: 04/09/19 20:59 Dextrose (Glutose 40%) 18.75 gm PO PRN PRN PRN Reason: BS Below 70 & tolerate po Stop: 03/30/19 09:25 Fenofibrate (Tricor) 134 mg PO HS [facility] Stop: 03/30/19 20:59 Last Admin: 02/07/19 21:33 Dose: 134 mg Glucagon (Glucagen) 1 mg IM PRN PRN PRN Reason: BS Below 70 & not tolerate po Stop: 03/30/19 09:25 Insulin Glargine (Lantus Insulin) 10 units SUBQ HS [facility] Stop: 03/30/19 20:59 Last Admin: 02/07/19 21:44 Dose: 10 units Insulin Human Lispro (Humalog Insulin Sliding Scale) 0 units SUBQ [facility]; Protocol Stop: 03/30/19 11:29 Last Admin: 02/08/19 17:27 Dose: Not Given Lorazepam (Ativan) 0.5 mg PO Q4HR PRN; Protocol PRN Reason: Anxiety Stop: 02/27/19 21:59 Last Admin: 01/31/19 20:53 Dose: 0.5 mg Magnesium Hydroxide (Milk Of Magnesia) 30 ml PO HS PRN PRN Reason: Constipation Risperidone (Risperdal) 0.5 mg PO Q12HR [facility]; Protocol Stop: 03/30/19 08:59 Last Admin: 02/08/19 10:15 Dose: 0.5 mg Vitamin D (Vitamin D3) 2,000 iu PO HS [facility] Stop: 03/30/19 20:59 Last Admin: 02/07/19 21:32 Dose: 2,000 iu Zolpidem Tartrate (Ambien) 5 mg PO HS PRN PRN Reason: Insomnia Stop: 03/29/19 22:31 Last Admin: 01/30/19 21:03 Dose: 5 mg General: weak, demented, obese, NAD HEENT: NC/AT, PERRLA Neck: Supple, No JVD Lungs: CTAB Cardiovascular: RRR, Normal S1, Normal S2 Abdomen: soft, non-tender, non-distended Extremities: clear Neurological: no change Internal Medicine Assmt/Plan - Assessment Assessment: Acute Psychosis. Diabetes. Hyperlipidemia. Obesity. - Plan Plan: Continuation of care. Monitor Vitals and Labs. Continue present meds as directed. Accu-checks daily, continue DM meds as directed. Monitor Diet/Nutritional support. Psych management per Psych. Physical therapy/Occupational therapy prn. Fall precaution, frequent nursing rounds, and as needed restraints to prevent fall. Safety precaution. Supportive care. Continue collaborating with consulting specialists, case management and nursing team. Will Monitor patient and continue present care management. Nutritional Asmnt/Malnutr-PDOC - Dietary Evaluation Malnutrition Findings (Please click <Entered> for more info): Nutritional Asmnt/Malnutrition Start: 02/01/19 14: 25 Text: Status: Complete Freq: Protocol: Document 02/01/19 14:26 IAIN (Rec: 02/01/19 14:32 [email or web address]) Nutritional Asmnt/Malnutrition Patient General Information Nutritional Screening Moderate Risk Diagnosis Agitation Pertinent Medical Hx/Surgical Hx Psychosis, no other Pertinent Hx to report (H& P Limited) Subjective Information Pt is a 68-year-old female admitted on 01/27 d/t agitation with no acute distress. HT: 5 FT WT: 178 LB (80.91 kg) ABW: 120 LB (54.32 kg) BMI: 34.80 (Obese) GI: WNL, Soft, Non-Tender BM: 02/01 x1 I/O: 1140/Not Noted Skin: WNL, Intact Toby: 16 Diet Order: Na 2 gm, CCHO 45gm , Chopped Estimated Energy Needs: (Obese , ABW) 9640-6539 kcals (20-25 kcals/ kg) 54-65g Pro (1.0-1.2 g/kg) 3630-9356 ml (25-30 ml/kg) Pt is currently eating 75% of meals Per Meal/Nutrition Activity Record. Dietary is currently providing an estimated 1535 kcals and 85 gm Pro, per Pt PO intake this is providing an estimated 1151 kcals and 64gm Pro to meet 100 % kcal and 100% Pro needs. Current Diet Order/ Nutrition Support Na 2 gm, CCHO 45gm, Chopped Pertinent Medications Vitamin C, Calcium Carbonate, D50w (PRN), Glutose 40% (PRN), Tricor, Glucagen (PRN), INS- SS, Lantus, MOM (PRN), Vitamin D3 Pertinent Labs 01/28: Hgb/Hct 11.8/35.3 POC Glucose (last 24 hours): 180, 244, 157, 224, 189, 207 Nutritional Hx/Data Height 5 ft Height (Calculated Centimeters) 152.4 Current Weight (lbs) 178 lb Weight (Calculated Kilograms) 80.7 Weight (Calculated Grams) 34239.4 [place] Body Weight 100 LB (45.45 kg) % [place] Body Weight 178 Body Mass Index (BMI) 34.7 Weight Status Obese GI Symptoms GI Symptoms None Last BM 02/01 x1 Skin Integrity/Comment: Skin: WNL, Intact Toby: 16 Estimated Nutritional Goals BEE in Kcals: Adj wt of IBW Calories/Kcals/Kg 20-25 Kcals Calculated 3434-5747 Protein: Adj wt of IBW Protein g/k.0-1.2 Protein Calculated 54-65 Fluid: ml 6101-2138 ml (25-30 ml/kg) Nutritional Problem 1. Problem Problem Altered nutrient utilization Etiology r/t endocrine dysfunction Signs/Symptoms: aeb POC Glucose (last 24 hours ): 180, 244, 157, 224, 189, 207 Malnutrition Related to Morbid Obesity Malnutrition related to morbid obesity No Intervention/Recommendation Comments 1. Continue with Na 2 gm, CCHO 45gm, Chopped diet as ordered . 2. Continue antihyperglycemic medications for glucose control per MD order. Expected Outcomes/Goals Expected Outcomes/Goals 1. PO intake to continue to meet 75% of nutritional needs. 2. Monitor PO intake, wt, skin integrity, and nutrition related labs to trend WNL. 3. F/U as low risk in 7 days, 02/08
[2019-02-08] MEDS: Vitamin D3 2,000 IU SGL PO SCH (21:28)
[2019-02-08] MEDS: Fenofibrate, Micronized 134 mg Cap PO SCH (21:29)
[2019-02-08] MEDS: Insulin Glargine 100 units/ml 10ml Vial SUBQ SCH (21:29)
--- NOTE | 2019-02-09 02:00 | Progress Notes ---
DATE: 02/08/2019 SUBJECTIVE: The patient slept for about 10 hours, poor orientation, selectively mute, withdrawn, sad, ongoing depression. When I go and talk to the patient she does not say anything to me. Per staff, she sometimes refuses meals and staring blankly selectively mute, requires total care, highly impoverished. Per social services coordinator note, the patient coming from [facility]. ASSESSMENT: The patient seems to be approaching her baseline. No agitation, no escalation of behaviors. Still mostly withdrawn, depressed appearing. PLAN: We will continue to monitor. The patient may benefit from medication adjustments. Continue low dose of Risperdal. I will also be increasing her Celexa. ROBERTS [place]AP[place]# [id number]
[2019-02-09] MEDS: INSULIN LISPRO SLIDING SCALE 100 UNITS/ML UNIT SUBQ SCH ×4 (06:46→21:06)
[2019-02-09] MEDS: Aspirin 81mg Chewable Tab PO SCH (09:30)
[2019-02-09] MEDS: Multivitamin w/ Minerals Tab PO SCH (09:30)
--- NOTE | 2019-02-09 13:48 | Internal Medicine Prog Note ---
Internal Medicine Subjective - Subjective Service Date: 02/09/19 Patient seen and examined:: with staff Patient is:: awake, arousable, in bed, agitated, other (Demented. [place] speaking.) Patient Complaints of:: other (Acute Psychosis.) Per staff patient has:: no adverse event, no episodes of fall Internal Medicine Objective - Results Result Diagrams: 01/28/19 20:05 01/28/19 20:05 Recent Labs: Laboratory Last Values WBC 7.7 Th/cmm (4.8-10.8) 01/28/19 20:05 RBC 3.94 Mil/cmm (3.80-5.20) 01/28/19 20:05 Hgb 11.8 gm/dL (12-16) L 01/28/19 20:05 Hct 35.3 % (41.0-60) L 01/28/19 20:05 MCV 89.7 fl (81-100) 01/28/19 20:05 MCH 30.0 pg (27.0-31.0) 01/28/19 20:05 MCHC Differential 33.5 pg (28.0-36.0) 01/28/19 20:05 RDW 12.3 % (11.5-20.0) 01/28/19 20:05 Plt Count 230 Th/cmm (150-400) 01/28/19 20:05 MPV 8.7 fl 01/28/19 20:05 Neutrophils % 60.5 % (40.0-80.0) 01/28/19 20:05 Lymphocytes % 30.4 % (20.0-50.0) 01/28/19 20:05 Monocytes % 6.7 % (2.0-10.0) 01/28/19 20:05 Eosinophils % 1.6 % (0.0-5.0) 01/28/19 20:05 Basophils % 0.8 % (0.0-2.0) 01/28/19 20:05 Sodium 131 mEq/L (136-145) L 01/28/19 20:05 Potassium 3.9 mEq/L (3.5-5.1) 01/28/19 20:05 Chloride 99 mEq/L (98-107) 01/28/19 20:05 Carbon Dioxide 24.9 mEq/L (21.0-31.0) 01/28/19 20:05 Anion Gap 11.0 (7.0-16.0) 01/28/19 20:05 BUN 20 mg/dL (7-25) 01/28/19 20:05 Creatinine 0.8 mg/dL (0.6-1.2) 01/28/19 20:05 Est GFR ( Amer) TNP 01/28/19 20:05 Est GFR (Non-Af Amer) TNP 01/28/19 20:05 BUN/Creatinine Ratio 25.0 01/28/19 20:05 Glucose 350 mg/dL (70-105) H 01/28/19 20:05 POC Glucose 225 MG/DL (70 - 105) H 02/09/19 12:00 Calcium 9.7 mg/dL (8.6-10.3) 01/28/19 20:05 Total Bilirubin 0.3 mg/dL (0.3-1.0) 01/28/19 20:05 AST 12 U/L (13-39) L 01/28/19 20:05 ALT 11 U/L (7-52) 01/28/19 20:05 Alkaline Phosphatase 47 U/L (34-104) 01/28/19 20:05 Total Protein 7.0 gm/dL (6.0-8.3) 01/28/19 20:05 Albumin 3.6 gm/dL (3.7-5.3) L 01/28/19 20:05 Globulin 3.4 gm/dL 01/28/19 20:05 Albumin/Globulin Ratio 1.1 (1.0-1.8) 01/28/19 20:05 Triglycerides 171 mg/dL (<150) H 01/28/19 20:30 Cholesterol 181 mg/dL (<200) 01/28/19 20:30 LDL Cholesterol Direct 127 mg/dL (75-193) 01/28/19 20:30 HDL Cholesterol 41 mg/dL (23-92) 01/28/19 20:30 Urine Source CATH 01/30/19 16:25 Urine Color YELLOW 01/30/19 16:25 Urine Clarity CLEAR (CLEAR) 01/30/19 16:25 Urine pH 6.0 (4.6 - 8.0) 01/30/19 16:25 Ur Specific [place] 1.020 (1.005-1.030) 01/30/19 16:25 Urine Protein NEGATIVE mg/dL (NEGATIVE) 01/30/19 16:25 Urine Glucose (UA) NEGATIVE mg/dL (NEGATIVE) 01/30/19 16:25 Urine Ketones NEGATIVE mg/dL (NEGATIVE) 01/30/19 16:25 Urine Blood TRACE (NEGATIVE) 01/30/19 16:25 Urine Nitrate NEGATIVE (NEGATIVE) 01/30/19 16:25 Urine Bilirubin NEGATIVE (NEGATIVE) 01/30/19 16:25 Urine Urobilinogen 0.2 E.U./dL (0.2 - 1.0) 01/30/19 16:25 Ur Leukocyte Esterase TRACE (NEGATIVE) H 01/30/19 16:25 Urine RBC 0-2 /hpf (0-5) 01/30/19 16:25 Urine WBC 2-5 /hpf (0-5) 01/30/19 16:25 Ur Epithelial Cells FEW /lpf (FEW) 01/30/19 16:25 Urine Bacteria 2+ /hpf (NONE SEEN) H 01/30/19 16:25 - Physical Exam Vitals and I&O: Vital Signs Temp 97.9 F 02/09/19 06:31 Pulse 76 02/09/19 08:00 Resp 20 02/09/19 06:31 BP 119/63 02/09/19 08:00 Pulse Ox 94 02/09/19 06:31 Intake & Output 02/08/19 02/09/19 02/09/19 18:59 06:59 18:59 Intake Total 800 120 Balance 800 120 Intake: Oral 800 120 Other: # Voids 3 3 # Bowel Movements 1 0 Stool Characteristics Formed Formed Brown Brown Active Medications: Current Medications Acetaminophen (Tylenol) 650 mg PO Q4HR PRN PRN Reason: Mild Pain / Temp above 100 Stop: 03/29/19 22:31 Ascorbic Acid (Vitamin C) 500 mg PO DAILY [facility] Stop: 03/30/19 08:59 Last Admin: 02/09/19 09:30 Dose: 500 mg Aspirin (Aspirin Chewable) 81 mg PO DAILY [facility] Stop: 03/30/19 08:59 Last Admin: 02/09/19 09:30 Dose: 81 mg Calcium Carbonate (Calcium Carb) 600 mg PO HS [facility] Stop: 03/30/19 20:59 Last Admin: 02/08/19 21:28 Dose: 600 mg Citalopram Hydrobromide (Celexa) 15 mg PO HS [facility] Stop: 04/09/19 20:59 Last Admin: 02/08/19 21:29 Dose: 15 mg Dextrose (Glutose 40%) 18.75 gm PO PRN PRN PRN Reason: BS Below 70 & tolerate po Stop: 03/30/19 09:25 Fenofibrate (Tricor) 134 mg PO HS [facility] Stop: 03/30/19 20:59 Last Admin: 02/08/19 21:29 Dose: 134 mg Glucagon (Glucagen) 1 mg IM PRN PRN PRN Reason: BS Below 70 & not tolerate po Stop: 03/30/19 09:25 Insulin Glargine (Lantus Insulin) [address] [facility] Stop: 03/30/19 20:59 Last Admin: 02/08/19 21:29 Dose: 10 units Insulin Human Lispro (Humalog Insulin Sliding Scale) 0 units SUBQ [facility]; Protocol Stop: 03/30/19 11:29 Last Admin: 02/09/19 12:06 Dose: 4 units Lorazepam (Ativan) 0.5 mg PO Q4HR PRN; Protocol PRN Reason: Anxiety Stop: 02/27/19 21:59 Last Admin: 01/31/19 20:53 Dose: 0.5 mg Magnesium Hydroxide (Milk Of Magnesia) 30 ml PO HS PRN PRN Reason: Constipation Risperidone (Risperdal) 0.5 mg PO Q12HR [facility]; Protocol Stop: 03/30/19 08:59 Last Admin: 02/09/19 09:31 Dose: 0.5 mg Vitamin D (Vitamin D3) 2,000 iu PO HS [facility] Stop: 03/30/19 20:59 Last Admin: 02/08/19 21:28 Dose: 2,000 iu Zolpidem Tartrate (Ambien) 5 mg PO HS PRN PRN Reason: Insomnia Stop: 03/29/19 22:31 Last Admin: 01/30/19 21:03 Dose: 5 mg Physical Exam: Patient is awake, irritable and agitated, continues to have episodes of yelling. General: weak, demented, obese, NAD HEENT: NC/AT, PERRLA Neck: Supple, No JVD Lungs: CTAB Cardiovascular: RRR, Normal S1, Normal S2 Abdomen: soft, non-tender, non-distended Extremities: clear Neurological: no change Internal Medicine Assmt/Plan - Assessment Assessment: Acute Psychosis. Diabetes. Hyperlipidemia. Obesity. OA. - Plan Plan: Continuation of care. Monitor Vitals and Labs. Continue present meds as directed. Accu-checks daily, continue DM meds as directed. Monitor Diet/Nutritional support. Psych management per Psych. Physical therapy/Occupational therapy prn. Fall precaution, frequent nursing rounds, and as needed restraints to prevent fall. Safety precaution. Supportive care. Continue collaborating with consulting specialists, case management and nursing team. Will Monitor patient and continue present care management. Nutritional Asmnt/Malnutr-PDOC - Dietary Evaluation Malnutrition Findings (Please click <Entered> for more info): Nutritional Asmnt/Malnutrition Start: 02/01/19 14: 25 Text: Status: Complete Freq: Protocol: Document 02/01/19 14:26 IAIN (Rec: 02/01/19 14:32 [email or web address]) Nutritional Asmnt/Malnutrition Patient General Information Nutritional Screening Moderate Risk Diagnosis Agitation Pertinent Medical Hx/Surgical Hx Psychosis, no other Pertinent Hx to report (H& P Limited) Subjective Information Pt is a 68-year-old female admitted on 01/27 d/t agitation with no acute distress. HT: 5 FT WT: 178 LB (80.91 kg) ABW: 120 LB (54.32 kg) BMI: 34.80 (Obese) GI: WNL, Soft, Non-Tender BM: 02/01 x1 I/O: 1140/Not Noted Skin: WNL, Intact Toby: 16 Diet Order: Na 2 gm, CCHO 45gm , Chopped Estimated Energy Needs: (Obese , ABW) 5525-4467 kcals (20-25 kcals/ kg) 54-65g Pro (1.0-1.2 g/kg) 5390-6592 ml (25-30 ml/kg) Pt is currently eating 75% of meals Per Meal/Nutrition Activity Record. Dietary is currently providing an estimated 1535 kcals and 85 gm Pro, per Pt PO intake this is providing an estimated 1151 kcals and 64gm Pro to meet 100 % kcal and 100% Pro needs. Current Diet Order/ Nutrition Support Na 2 gm, CCHO 45gm, Chopped Pertinent Medications Vitamin C, Calcium Carbonate, D50w (PRN), Glutose 40% (PRN), Tricor, Glucagen (PRN), INS- SS, Lantus, MOM (PRN), Vitamin D3 Pertinent Labs 01/28: Hgb/Hct 11.8/35.3 POC Glucose (last 24 hours): 180, 244, 157, 224, 189, 207 Nutritional Hx/Data Height 1.52 m Height (Calculated Centimeters) 152.4 Current Weight (lbs) 80.739 kg Weight (Calculated Kilograms) 80.7 Weight (Calculated Grams) 99929.4 [place] Body Weight 100 LB (45.45 kg) % [place] Body Weight 178 Body Mass Index (BMI) 34.7 Weight Status Obese GI Symptoms GI Symptoms None Last BM 02/01 x1 Skin Integrity/Comment: Skin: WNL, Intact Toby: 16 Estimated Nutritional Goals BEE in Kcals: Adj wt of IBW Calories/Kcals/Kg 20-25 Kcals Calculated 1102-9122 Protein: Adj wt of IBW Protein g/k.0-1.2 Protein Calculated 54-65 Fluid: ml 9424-7662 ml (25-30 ml/kg) Nutritional Problem 1. Problem Problem Altered nutrient utilization Etiology r/t endocrine dysfunction Signs/Symptoms: aeb POC Glucose (last 24 hours ): 180, 244, 157, 224, 189, 207 Malnutrition Related to Morbid Obesity Malnutrition related to morbid obesity No Intervention/Recommendation Comments 1. Continue with Na 2 gm, CCHO 45gm, Chopped diet as ordered . 2. Continue antihyperglycemic medications for glucose control per MD order. Expected Outcomes/Goals Expected Outcomes/Goals 1. PO intake to continue to meet 75% of nutritional needs. 2. Monitor PO intake, wt, skin integrity, and nutrition related labs to trend WNL. 3. F/U as low risk in 7 days, 02/08
[2019-02-09] MEDS: Insulin Glargine 100 units/ml 10ml Vial SUBQ SCH (21:06)
[2019-02-09] MEDS: Fenofibrate, Micronized 134 mg Cap PO SCH (21:07)
[2019-02-09] MEDS: Vitamin D3 2,000 IU SGL PO SCH (21:07)
--- NOTE | 2019-02-09 23:09 | Progress Notes ---
DATE: 02/09/2019 SUBJECTIVE: The patient in the hospital and still noted to be selectively mute, not talking to me, sleeping, arousable, just smiles and close her eyes, does not say anything. Per staff, she just responds to her name, sometimes follow some commands, but otherwise is full care, needing higher level of prompting, redirection. 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 The patient is generally calm, no current agitation, and coming from [facility]. ASSESSMENT: The patient likely approaching her baseline. PLAN: We will confirm if the patient is able to return back to [facility]. Medications were noted. JOB# [id number]
[2019-02-10] MEDS: INSULIN LISPRO SLIDING SCALE 100 UNITS/ML UNIT SUBQ SCH ×4 (06:46→21:04)
[2019-02-10] MEDS: Aspirin 81mg Chewable Tab PO SCH (09:00)
[2019-02-10] MEDS: Multivitamin w/ Minerals Tab PO SCH (09:00)
--- NOTE | 2019-02-10 12:01 | Internal Medicine Prog Note ---
Internal Medicine Subjective - Subjective Service Date: 02/10/19 Patient is:: awake, arousable, in bed, agitated, other (Demented. turkish speaking.) Patient Complaints of:: other (Acute Psychosis.) Per staff patient has:: no adverse event, no episodes of fall Internal Medicine Objective - Results Result Diagrams: 01/28/19 20:05 01/28/19 20:05 Recent Labs: Laboratory Last Values WBC 7.7 Th/cmm (4.8-10.8) 01/28/19 20:05 RBC 3.94 Mil/cmm (3.80-5.20) 01/28/19 20:05 Hgb 11.8 gm/dL (12-16) L 01/28/19 20:05 Hct 35.3 % (41.0-60) L 01/28/19 20:05 MCV 89.7 fl (81-100) 01/28/19 20:05 MCH 30.0 pg (27.0-31.0) 01/28/19 20:05 MCHC Differential 33.5 pg (28.0-36.0) 01/28/19 20:05 RDW 12.3 % (11.5-20.0) 01/28/19 20:05 Plt Count 230 Th/cmm (150-400) 01/28/19 20:05 MPV 8.7 fl 01/28/19 20:05 Neutrophils % 60.5 % (40.0-80.0) 01/28/19 20:05 Lymphocytes % 30.4 % (20.0-50.0) 01/28/19 20:05 Monocytes % 6.7 % (2.0-10.0) 01/28/19 20:05 Eosinophils % 1.6 % (0.0-5.0) 01/28/19 20:05 Basophils % 0.8 % (0.0-2.0) 01/28/19 20:05 Sodium 131 mEq/L (136-145) L 01/28/19 20:05 Potassium 3.9 mEq/L (3.5-5.1) 01/28/19 20:05 Chloride 99 mEq/L (98-107) 01/28/19 20:05 Carbon Dioxide 24.9 mEq/L (21.0-31.0) 01/28/19 20:05 Anion Gap 11.0 (7.0-16.0) 01/28/19 20:05 BUN 20 mg/dL (7-25) 01/28/19 20:05 Creatinine 0.8 mg/dL (0.6-1.2) 01/28/19 20:05 Est GFR ( Amer) TNP 01/28/19 20:05 Est GFR (Non-Af Amer) TNP 01/28/19 20:05 BUN/Creatinine Ratio 25.0 01/28/19 20:05 Glucose 350 mg/dL (70-105) H 01/28/19 20:05 POC Glucose 281 MG/DL (70 - 105) H 02/10/19 11:24 Calcium 9.7 mg/dL (8.6-10.3) 01/28/19 20:05 Total Bilirubin 0.3 mg/dL (0.3-1.0) 01/28/19 20:05 AST 12 U/L (13-39) L 01/28/19 20:05 ALT 11 U/L (7-52) 01/28/19 20:05 Alkaline Phosphatase 47 U/L (34-104) 01/28/19 20:05 Total Protein 7.0 gm/dL (6.0-8.3) 01/28/19 20:05 Albumin 3.6 gm/dL (3.7-5.3) L 01/28/19 20:05 Globulin 3.4 gm/dL 01/28/19 20:05 Albumin/Globulin Ratio 1.1 (1.0-1.8) 01/28/19 20:05 Triglycerides 171 mg/dL (<150) H 01/28/19 20:30 Cholesterol 181 mg/dL (<200) 01/28/19 20:30 LDL Cholesterol Direct 127 mg/dL (75-193) 01/28/19 20:30 HDL Cholesterol 41 mg/dL (23-92) 01/28/19 20:30 Urine Source CATH 01/30/19 16:25 Urine Color YELLOW 01/30/19 16:25 Urine Clarity CLEAR (CLEAR) 01/30/19 16:25 Urine pH 6.0 (4.6 - 8.0) 01/30/19 16:25 Ur Specific [place] 1.020 (1.005-1.030) 01/30/19 16:25 Urine Protein NEGATIVE mg/dL (NEGATIVE) 01/30/19 16:25 Urine Glucose (UA) NEGATIVE mg/dL (NEGATIVE) 01/30/19 16:25 Urine Ketones NEGATIVE mg/dL (NEGATIVE) 01/30/19 16:25 Urine Blood TRACE (NEGATIVE) 01/30/19 16:25 Urine Nitrate NEGATIVE (NEGATIVE) 01/30/19 16:25 Urine Bilirubin NEGATIVE (NEGATIVE) 01/30/19 16:25 Urine Urobilinogen 0.2 E.U./dL (0.2 - 1.0) 01/30/19 16:25 Ur Leukocyte Esterase TRACE (NEGATIVE) H 01/30/19 16:25 Urine RBC 0-2 /hpf (0-5) 01/30/19 16:25 Urine WBC 2-5 /hpf (0-5) 01/30/19 16:25 Ur Epithelial Cells FEW /lpf (FEW) 01/30/19 16:25 Urine Bacteria 2+ /hpf (NONE SEEN) H 01/30/19 16:25 - Physical Exam Vitals and I&O: Vital Signs Temp 97.7 F 02/10/19 06:17 Pulse 72 02/10/19 06:17 Resp 19 02/10/19 06:17 BP 134/72 02/10/19 06:17 Pulse Ox 95 02/10/19 06:17 Intake & Output 02/09/19 02/10/19 02/10/19 18:59 06:59 18:59 Intake Total 1200 240 Balance 1200 240 Intake: Oral 1200 240 Other: # Voids 2 # Bowel Movements 1 Active Medications: Current Medications Acetaminophen (Tylenol) 650 mg PO Q4HR PRN PRN Reason: Mild Pain / Temp above 100 Stop: 03/29/19 22:31 Ascorbic Acid (Vitamin C) 500 mg PO DAILY JOELLEN Stop: 03/30/19 08:59 Last Admin: 02/10/19 09:00 Dose: 500 mg Aspirin (Aspirin Chewable) 81 mg PO DAILY JOELLEN Stop: 03/30/19 08:59 Last Admin: 02/10/19 09:00 Dose: 81 mg Calcium Carbonate (Calcium Carb) 600 mg PO HS JOELLEN Stop: 03/30/19 20:59 Last Admin: 02/09/19 21:07 Dose: 600 mg Citalopram Hydrobromide (Celexa) 15 mg PO HS JOELLEN Stop: 04/09/19 20:59 Last Admin: 02/09/19 21:07 Dose: 15 mg Dextrose (Glutose 40%) 18.75 gm PO PRN PRN PRN Reason: BS Below 70 & tolerate po Stop: 03/30/19 09:25 Fenofibrate (Tricor) 134 mg PO HS JOELLEN Stop: 03/30/19 20:59 Last Admin: 02/09/19 21:07 Dose: 134 mg Glucagon (Glucagen) 1 mg IM PRN PRN PRN Reason: BS Below 70 & not tolerate po Stop: 03/30/19 09:25 Insulin Glargine (Lantus Insulin) 10 units SUBQ HS [facility] Stop: 03/30/19 20:59 Last Admin: 02/09/19 21:06 Dose: 10 units Insulin Human Lispro (Humalog Insulin Sliding Scale) 0 units SUBQ [facility] JOELLEN; Protocol Stop: 03/30/19 11:29 Last Admin: 02/10/19 11:55 Dose: 6 units Lorazepam (Ativan) 0.5 mg PO Q4HR PRN; Protocol PRN Reason: Anxiety Stop: 02/27/19 21:59 Last Admin: 01/31/19 20:53 Dose: 0.5 mg Magnesium Hydroxide (Milk Of Magnesia) 30 ml PO HS PRN PRN Reason: Constipation Risperidone (Risperdal) 0.5 mg PO Q12HR JOELLEN; Protocol Stop: 03/30/19 08:59 Last Admin: 02/10/19 09:00 Dose: 0.5 mg Vitamin D (Vitamin D3) 2,000 iu PO HS JOELLEN Stop: 03/30/19 20:59 Last Admin: 02/09/19 21:07 Dose: 2,000 iu Zolpidem Tartrate (Ambien) 5 mg PO HS PRN PRN Reason: Insomnia Stop: 03/29/19 22:31 Last Admin: 01/30/19 21:03 Dose: 5 mg General: weak, demented, obese, NAD HEENT: NC/AT, PERRLA Neck: Supple, No JVD Lungs: CTAB Cardiovascular: RRR, Normal S1, Normal S2 Abdomen: soft, non-tender, non-distended Extremities: clear Neurological: no change Internal Medicine Assmt/Plan - Assessment Assessment: Acute Psychosis. Diabetes. Hyperlipidemia. Obesity. - Plan Plan: Continuation of care. Monitor Vitals and Labs. Continue present meds as directed. Accu-checks daily, continue DM meds as directed. Monitor Diet/Nutritional support. Psych management per Psych. Physical therapy/Occupational therapy prn. Fall precaution, frequent nursing rounds, and as needed restraints to prevent fall. Safety precaution. Supportive care. Continue collaborating with consulting specialists, case management and nursing team. Will Monitor patient and continue present care management. Nutritional Asmnt/Malnutr-PDOC - Dietary Evaluation Malnutrition Findings (Please click <Entered> for more info): Nutritional Asmnt/Malnutrition Start: 02/01/19 14: 25 Text: Status: Complete Freq: Protocol: Document 02/01/19 14:26 IAIN (Rec: 02/01/19 14:32 [email or web address]) Nutritional Asmnt/Malnutrition Patient General Information Nutritional Screening Moderate Risk Diagnosis Agitation Pertinent Medical Hx/Surgical Hx Psychosis, no other Pertinent Hx to report (H& P Limited) Subjective Information Pt is a 68-year-old female admitted on 01/27 d/t agitation with no acute distress. HT: 5 FT WT: 178 LB (80.91 kg) ABW: 120 LB (54.32 kg) BMI: 34.80 (Obese) GI: WNL, Soft, Non-Tender BM: 02/01 x1 I/O: 1140/Not Noted Skin: WNL, Intact Toby: 16 Diet Order: Na 2 gm, CCHO 45gm , Chopped Estimated Energy Needs: (Obese , ABW) 6258-0804 kcals (20-25 kcals/ kg) 54-65g Pro (1.0-1.2 g/kg) 5573-0215 ml (25-30 ml/kg) Pt is currently eating 75% of meals Per Meal/Nutrition Activity Record. Dietary is currently providing an estimated 1535 kcals and 85 gm Pro, per Pt PO intake this is providing an estimated 1151 kcals and 64gm Pro to meet 100 % kcal and 100% Pro needs. Current Diet Order/ Nutrition Support Na 2 gm, CCHO 45gm, Chopped Pertinent Medications Vitamin C, Calcium Carbonate, D50w (PRN), Glutose 40% (PRN), Tricor, Glucagen (PRN), INS- SS, Lantus, MOM (PRN), Vitamin D3 Pertinent Labs 01/28: Hgb/Hct 11.8/35.3 POC Glucose (last 24 hours): 180, 244, 157, 224, 189, 207 Nutritional Hx/Data Height 5 ft Height (Calculated Centimeters) 152.4 Current Weight (lbs) 178 lb Weight (Calculated Kilograms) 80.7 Weight (Calculated Grams) 19938.4 [place] Body Weight 100 LB (45.45 kg) % [place] Body Weight 178 Body Mass Index (BMI) 34.7 Weight Status Obese GI Symptoms GI Symptoms None Last BM 02/01 x1 Skin Integrity/Comment: Skin: WNL, Intact Toby: 16 Estimated Nutritional Goals BEE in Kcals: Adj wt of IBW Calories/Kcals/Kg 20-25 Kcals Calculated 8439-6006 Protein: Adj wt of IBW Protein g/k.0-1.2 Protein Calculated 54-65 Fluid: ml 7308-7575 ml (25-30 ml/kg) Nutritional Problem 1. Problem Problem Altered nutrient utilization Etiology r/t endocrine dysfunction Signs/Symptoms: aeb POC Glucose (last 24 hours ): 180, 244, 157, 224, 189, 207 Malnutrition Related to Morbid Obesity Malnutrition related to morbid obesity No Intervention/Recommendation Comments 1. Continue with Na 2 gm, CCHO 45gm, Chopped diet as ordered . 2. Continue antihyperglycemic medications for glucose control per MD order. Expected Outcomes/Goals Expected Outcomes/Goals 1. PO intake to continue to meet 75% of nutritional needs. 2. Monitor PO intake, wt, skin integrity, and nutrition related labs to trend WNL. 3. F/U as low risk in 7 days, 02/08
[2019-02-10] MEDS: Vitamin D3 2,000 IU SGL PO SCH (20:58)
[2019-02-10] MEDS: Fenofibrate, Micronized 134 mg Cap PO SCH (21:00)
[2019-02-10] MEDS: Insulin Glargine 100 units/ml 10ml Vial SUBQ SCH (21:03)
--- NOTE | 2019-02-10 21:12 | Progress Notes ---
DATE: 02/10/2019 SUBJECTIVE: The patient in the hospital, noted to be selectively mute. She repeated her baseline. She is pretty calm, staring blankly at me, very confused, dementia per documentation. The patient is coming from [facility]. No agitation, no escalation of behaviors. Per nursing staff, she is just mostly oriented to name only, responds to her name, needing a higher level of care. No agitation. She is not hitting anybody, appears comfortable, in no distress. PLAN: We will monitor for further 24 hours and prepare to step her down to the alf. JOB# [id number]
[2019-02-11] MEDS: INSULIN LISPRO SLIDING SCALE 100 UNITS/ML UNIT SUBQ SCH ×2 (06:37→11:50)
[2019-02-11] MEDS: Multivitamin w/ Minerals Tab PO SCH (08:39)
[2019-02-11] MEDS: Aspirin 81mg Chewable Tab PO SCH (08:39)
--- NOTE | 2019-02-11 09:21 | Internal Medicine Prog Note ---
Internal Medicine Subjective - Subjective Service Date: 02/11/19 Patient seen and examined:: with staff Patient is:: awake, arousable, in bed, agitated, other (Demented. czech speaking.) Patient Complaints of:: other (Acute Psychosis.) Per staff patient has:: no adverse event, no episodes of fall Internal Medicine Objective - Results Result Diagrams: 01/28/19 20:05 01/28/19 20:05 Recent Labs: Laboratory Last Values WBC 7.7 Th/cmm (4.8-10.8) 01/28/19 20:05 RBC 3.94 Mil/cmm (3.80-5.20) 01/28/19 20:05 Hgb 11.8 gm/dL (12-16) L 01/28/19 20:05 Hct 35.3 % (41.0-60) L 01/28/19 20:05 MCV 89.7 fl (81-100) 01/28/19 20:05 MCH 30.0 pg (27.0-31.0) 01/28/19 20:05 MCHC Differential 33.5 pg (28.0-36.0) 01/28/19 20:05 RDW 12.3 % (11.5-20.0) 01/28/19 20:05 Plt Count 230 Th/cmm (150-400) 01/28/19 20:05 MPV 8.7 fl 01/28/19 20:05 Neutrophils % 60.5 % (40.0-80.0) 01/28/19 20:05 Lymphocytes % 30.4 % (20.0-50.0) 01/28/19 20:05 Monocytes % 6.7 % (2.0-10.0) 01/28/19 20:05 Eosinophils % 1.6 % (0.0-5.0) 01/28/19 20:05 Basophils % 0.8 % (0.0-2.0) 01/28/19 20:05 Sodium 131 mEq/L (136-145) L 01/28/19 20:05 Potassium 3.9 mEq/L (3.5-5.1) 01/28/19 20:05 Chloride 99 mEq/L (98-107) 01/28/19 20:05 Carbon Dioxide 24.9 mEq/L (21.0-31.0) 01/28/19 20:05 Anion Gap 11.0 (7.0-16.0) 01/28/19 20:05 BUN 20 mg/dL (7-25) 01/28/19 20:05 Creatinine 0.8 mg/dL (0.6-1.2) 01/28/19 20:05 Est GFR ( Amer) TNP 01/28/19 20:05 Est GFR (Non-Af Amer) TNP 01/28/19 20:05 BUN/Creatinine Ratio 25.0 01/28/19 20:05 Glucose 350 mg/dL (70-105) H 01/28/19 20:05 POC Glucose 248 MG/DL (70 - 105) H 02/10/19 16:12 Calcium 9.7 mg/dL (8.6-10.3) 01/28/19 20:05 Total Bilirubin 0.3 mg/dL (0.3-1.0) 01/28/19 20:05 AST 12 U/L (13-39) L 01/28/19 20:05 ALT 11 U/L (7-52) 01/28/19 20:05 Alkaline Phosphatase 47 U/L (34-104) 01/28/19 20:05 Total Protein 7.0 gm/dL (6.0-8.3) 01/28/19 20:05 Albumin 3.6 gm/dL (3.7-5.3) L 01/28/19 20:05 Globulin 3.4 gm/dL 01/28/19 20:05 Albumin/Globulin Ratio 1.1 (1.0-1.8) 01/28/19 20:05 Triglycerides 171 mg/dL (<150) H 01/28/19 20:30 Cholesterol 181 mg/dL (<200) 01/28/19 20:30 LDL Cholesterol Direct 127 mg/dL (75-193) 01/28/19 20:30 HDL Cholesterol 41 mg/dL (23-92) 01/28/19 20:30 Urine Source CATH 01/30/19 16:25 Urine Color YELLOW 01/30/19 16:25 Urine Clarity CLEAR (CLEAR) 01/30/19 16:25 Urine pH 6.0 (4.6 - 8.0) 01/30/19 16:25 Ur Specific [place] 1.020 (1.005-1.030) 01/30/19 16:25 Urine Protein NEGATIVE mg/dL (NEGATIVE) 01/30/19 16:25 Urine Glucose (UA) NEGATIVE mg/dL (NEGATIVE) 01/30/19 16:25 Urine Ketones NEGATIVE mg/dL (NEGATIVE) 01/30/19 16:25 Urine Blood TRACE (NEGATIVE) 01/30/19 16:25 Urine Nitrate NEGATIVE (NEGATIVE) 01/30/19 16:25 Urine Bilirubin NEGATIVE (NEGATIVE) 01/30/19 16:25 Urine Urobilinogen 0.2 E.U./dL (0.2 - 1.0) 01/30/19 16:25 Ur Leukocyte Esterase TRACE (NEGATIVE) H 01/30/19 16:25 Urine RBC 0-2 /hpf (0-5) 01/30/19 16:25 Urine WBC 2-5 /hpf (0-5) 01/30/19 16:25 Ur Epithelial Cells FEW /lpf (FEW) 01/30/19 16:25 Urine Bacteria 2+ /hpf (NONE SEEN) H 01/30/19 16:25 - Physical Exam Vitals and I&O: Vital Signs Temp 98.2 F 02/10/19 14:00 Pulse 79 02/10/19 14:00 Resp 20 02/10/19 14:00 BP 130/52 02/10/19 14:00 Pulse Ox 96 02/10/19 14:00 Intake & Output 02/10/19 02/11/19 02/11/19 18:59 06:59 18:59 Intake Total 1200 Balance 1200 Intake: Oral 1200 Other: # Voids 4 # Bowel Movements 0 Active Medications: Current Medications Acetaminophen (Tylenol) 650 mg PO Q4HR PRN PRN Reason: Mild Pain / Temp above 100 Stop: 03/29/19 22:31 Ascorbic Acid (Vitamin C) 500 mg PO DAILY JOELLEN Stop: 03/30/19 08:59 Last Admin: 02/11/19 08:39 Dose: 500 mg Aspirin (Aspirin Chewable) 81 mg PO DAILY JOELLEN Stop: 03/30/19 08:59 Last Admin: 02/11/19 08:39 Dose: 81 mg Calcium Carbonate (Calcium Carb) 600 mg PO HS JOELLEN Stop: 03/30/19 20:59 Last Admin: 02/10/19 20:57 Dose: 600 mg Citalopram Hydrobromide (Celexa) 15 mg PO HS JOELLEN Stop: 04/09/19 20:59 Last Admin: 02/10/19 20:59 Dose: 15 mg Dextrose (Glutose 40%) 18.75 gm PO PRN PRN PRN Reason: BS Below 70 & tolerate po Stop: 03/30/19 09:25 Fenofibrate (Tricor) 134 mg PO HS JOELLEN Stop: 03/30/19 20:59 Last Admin: 02/10/19 21:00 Dose: 134 mg Glucagon (Glucagen) 1 mg IM PRN PRN PRN Reason: BS Below 70 & not tolerate po Stop: 03/30/19 09:25 Insulin Glargine (Lantus Insulin) 10 units SUBQ [facility] Stop: 03/30/19 20:59 Last Admin: 02/10/19 21:03 Dose: 10 units Insulin Human Lispro (Humalog Insulin Sliding Scale) 0 units SUBQ [facility]; Protocol Stop: 03/30/19 11:29 Last Admin: 02/11/19 06:37 Dose: 2 units Lorazepam (Ativan) 0.5 mg PO Q4HR PRN; Protocol PRN Reason: Anxiety Stop: 02/27/19 21:59 Last Admin: 01/31/19 20:53 Dose: 0.5 mg Magnesium Hydroxide (Milk Of Magnesia) 30 ml PO HS PRN PRN Reason: Constipation Risperidone (Risperdal) 0.5 mg PO Q12HR JOELLEN; Protocol Stop: 03/30/19 08:59 Last Admin: 02/11/19 08:40 Dose: 0.5 mg Vitamin D (Vitamin D3) 2,000 iu PO HS JOELLEN Stop: 03/30/19 20:59 Last Admin: 02/10/19 20:58 Dose: 2,000 iu Zolpidem Tartrate (Ambien) 5 mg PO HS PRN PRN Reason: Insomnia Stop: 03/29/19 22:31 Last Admin: 01/30/19 21:03 Dose: 5 mg Physical Exam: Patient is awake, confused and aggressive, continues to have episodes of screaming. General: weak, demented, obese, NAD HEENT: NC/AT, PERRLA Neck: Supple, No JVD Lungs: CTAB Cardiovascular: RRR, Normal S1, Normal S2 Abdomen: soft, non-tender, non-distended Extremities: clear Neurological: no change Internal Medicine Assmt/Plan - Assessment Assessment: Acute Psychosis. Diabetes. Hyperlipidemia. Obesity. OA. - Plan Plan: Continuation of care. Monitor Vitals and Labs. Continue present meds as directed. Accu-checks daily, continue DM meds as directed. Monitor Diet/Nutritional support. Psych management per Psych. Physical therapy/Occupational therapy prn. Fall precaution, frequent nursing rounds, and as needed restraints to prevent fall. Safety precaution. Supportive care. Continue collaborating with consulting specialists, case management and nursing team. Will Monitor patient and continue present care management. Nutritional Asmnt/Malnutr-PDOC - Dietary Evaluation Malnutrition Findings (Please click <Entered> for more info): Nutritional Asmnt/Malnutrition Start: 02/01/19 14: 25 Text: Status: Complete Freq: Protocol: Document 02/01/19 14:26 IAIN (Rec: 02/01/19 14:32 [email or web address]) Nutritional Asmnt/Malnutrition Patient General Information Nutritional Screening Moderate Risk Diagnosis Agitation Pertinent Medical Hx/Surgical Hx Psychosis, no other Pertinent Hx to report (H& P Limited) Subjective Information Pt is a 68-year-old female admitted on 01/27 d/t agitation with no acute distress. HT: 5 FT WT: 178 LB (80.91 kg) ABW: 120 LB (54.32 kg) BMI: 34.80 (Obese) GI: WNL, Soft, Non-Tender BM: 02/01 x1 I/O: 1140/Not Noted Skin: WNL, Intact Toby: 16 Diet Order: Na 2 gm, CCHO 45gm , Chopped Estimated Energy Needs: (Obese , ABW) 5629-0225 kcals (20-25 kcals/ kg) 54-65g Pro (1.0-1.2 g/kg) 8989-1199 ml (25-30 ml/kg) Pt is currently eating 75% of meals Per Meal/Nutrition Activity Record. Dietary is currently providing an estimated 1535 kcals and 85 gm Pro, per Pt PO intake this is providing an estimated 1151 kcals and 64gm Pro to meet 100 % kcal and 100% Pro needs. Current Diet Order/ Nutrition Support Na 2 gm, CCHO 45gm, Chopped Pertinent Medications Vitamin C, Calcium Carbonate, D50w (PRN), Glutose 40% (PRN), Tricor, Glucagen (PRN), INS- SS, Lantus, MOM (PRN), Vitamin D3 Pertinent Labs 01/28: Hgb/Hct 11.8/35.3 POC Glucose (last 24 hours): 180, 244, 157, 224, 189, 207 Nutritional Hx/Data Height 1.52 m Height (Calculated Centimeters) 152.4 Current Weight (lbs) 80.739 kg Weight (Calculated Kilograms) 80.7 Weight (Calculated Grams) 45918.4 [place] Body Weight 100 LB (45.45 kg) % [place] Body Weight 178 Body Mass Index (BMI) 34.7 Weight Status Obese GI Symptoms GI Symptoms None Last BM 02/01 x1 Skin Integrity/Comment: Skin: WNL, Intact Toby: 16 Estimated Nutritional Goals BEE in Kcals: Adj wt of IBW Calories/Kcals/Kg 20-25 Kcals Calculated 5363-7078 Protein: Adj wt of IBW Protein g/k.0-1.2 Protein Calculated 54-65 Fluid: ml 9121-8749 ml (25-30 ml/kg) Nutritional Problem 1. Problem Problem Altered nutrient utilization Etiology r/t endocrine dysfunction Signs/Symptoms: aeb POC Glucose (last 24 hours ): 180, 244, 157, 224, 189, 207 Malnutrition Related to Morbid Obesity Malnutrition related to morbid obesity No Intervention/Recommendation Comments 1. Continue with Na 2 gm, CCHO 45gm, Chopped diet as ordered . 2. Continue antihyperglycemic medications for glucose control per MD order. Expected Outcomes/Goals Expected Outcomes/Goals 1. PO intake to continue to meet 75% of nutritional needs. 2. Monitor PO intake, wt, skin integrity, and nutrition related labs to trend WNL. 3. F/U as low risk in 7 days, 02/08
--- NOTE | 2019-02-12 01:58 | Progress Notes ---
DATE: 02/11/2019 SUBJECTIVE: The patient is currently in the hospital, remains very confused, disoriented. No overt agitation, generally pleasant and likely approaching her baseline. The patient is currently coming from [facility]. Staff noting no events, seems to be getting along fairly well with staff in regards to not hurting anybody, allowing them to deal with her ADLs. The patient is at her baseline. We will discharge today. [facility]# [id number]
== END 2019-02-11 04:00 | DRG 885 ==
LOC: ER 19:17 → GERO2 21:00 → GERO 02-02 17:11
PROVIDERS: ADMIT Psychiatry & Neurology Psychiatry; ATTEND Psychiatry & Neurology Psychiatry
DX: F23 Brief psychotic disorder (principal); E11.65 Type 2 diabetes mellitus with hyperglycemia; F03.91 Unspecified dementia, unspecified severity, with behavioral disturbance; E78.5 Hyperlipidemia, unspecified; E66.9 Obesity, unspecified; Z88.0 Allergy status to penicillin; Z79.4 Long term (current) use of insulin; Z68.34 Body mass index [BMI] 34.0-34.9, adult
CPT/HCPCS: 36415-UA; 80053-TC; 80061-TC; 81001-TC; 82948-90; 83036-90; 85025-TC; 87086-90; J1815; Z7610